=== PATIENT | female | born 1990 | race Two or more races ===

== ENCOUNTER 2024-10-26 18:20 | Emergency (ER) | payer BC, SELFPAY ==
--- OUTSIDE RECORDS SUMMARY | 2024-09-24 10:00 | XMS_ITS | Encounter Summary ---
Author Organization [facility] Address [address] [place] [id number] Care Team Providers Care Gas Compressor Turbine Operator Name Role Phone KalpeshJanette Jaskaran SUTTON C.N.PBran Primary Care Provi jairo Reason for Referral * Outpatient (Routine) - Authorized Specialty Diagnoses / Procedures Referred By Contac t Referred To Contact Family Medicine Diagnoses Nevus Skin Yadira Bell APRN, C.N.P., D.N.P. [address] [place] [phone] Phone: tel: fax: [facility] Region Referral ID Status Reason Start Date Expiration Date V isits Requested Visits Authorized [id number] Authorized 09/24/2024 03/26/2026 1 1 * Outpatient (Routine) - Authorized Specialty Diagnoses / Procedures Referred By Contac t Referred To Contact Family Medicine Diagnoses Irritation Vagina Yadira Bell APRN, C.N.P., D.N.P. [address] [place] [phone] Phone: tel: fax: [facility] Region Referral ID Status Reason Start Date Expiration Date V isits Requested Visits Authorized [id number] Authorized 09/24/2024 03/26/2026 1 1 Reason for Visit * Reason Comments Pain Vaginal * Appointment Request (Routine) - Closed Specialty Diagnoses / Procedures Referred By Rachel casillas Referred To Contact Family Medicine Referral ID Status Reason Start Date Expiration Date Visits Re quested Visits Authorized [id number] Closed 09/23/2024 12/24/2025 1 1 Encounter Details Date Type Department Care Team (Late st Contact Info) Description 09/24/2024 10:00 AM CDT Office Visit Department of Family Medicine, [facility], in [place], [place] [address] [place] [address] Yadira Bell APRN, C.N.P., D.N.P. [address] [place] [address] Irritation Vagina (Primary Dx); Nevus Skin Social History Tobacco Use Types Packs/Day Years Used Date Smoking Tobacco: Every Day Cigarettes Smokeless Tobacco: Never Alcohol Use Standard Drinks/Week Comments Not Currently 4 (1 standard drink = 0.6 oz pur e alcohol) Humiliation, Afraid, Rape, and Kick questionnair e Answer Date Recorded Within the last year, have y ou been afraid of your partner or ex-partner? No 03/14/2021 Within the last year, have y ou been humiliated or emotionally abused in other ways by your partner or ex-partner? Patient declined 03/14/2021 Within the last year, have y ou been kicked, hit, slapped, or otherwise physically hurt by your partner or ex-partner? No 03/14/2021 Within the last year, have y ou been raped or forced to have any kind of sexual activity by your partner or ex-partner? No 03/14/2021 Hunger Vital Sign Answer Date Recorded Within the past 12 months, y ou worried that your food would run out before you got the money to buy more. Patient declined Within the past 12 months, t he food you bought just didn't last and you didn't have money to get more. Patient declined PRAPARE - Transportation Answer Date Re corded In the past 12 months, has l ack of transportation kept you from medical appointments or from getting medications? No 02/23 In the past 12 months, has l ack of transportation kept you from meetings, work, or from getting things needed for daily living? No 03/14/2021 Housing Stability Vital Sign Answer Onur e Recorded In the last 12 months, was t here a time when you were not able to pay the mortgage or rent on time? No 03/14/2021 In the last 12 months, how many places have you lived? 1 03/14/2021 In the last 12 months, was t here a time when you did not have a steady place to sleep or slept in a nursing home (including now)? No 03/14/2021 Depression Answer Date Recor ded PHQ-9 Total Score (max 27) 14 05/18 Education Answer Date Recorded What is the highest level of school you have completed or the highest degree you have received? GED or equivalent Comments Unknown Sex and Gender Information Value Date Recorded Sex Assigned at Female 03/01/2021 9:59 PM NUCLEAR SUPERVISING OPERATOR Legal Sex Female 11:14 AM NUCLEAR SUPERVISING OPERATOR Gender Identity Female 11/25/2020 9:55 AM CDT Sexual Orientation Straight 11/25/2020 9: 55 AM CDT documented as of this encounter Last Filed Vital Signs Vital Sign Reading Time Taken Comments Blood Pressure 108/77 09/24/2024 9:56 AM CDT Pulse 64 09/24/2024 9:56 AM CDT Temperature - - Respiratory Rate 16 09/24/2024 9:56 AM CDT Oxygen Saturation - - Inhaled Oxygen Concentration - - Weight 63.1 kg (139 lb 1.8 oz) 09/24/2024 9:56 A M CDT Height - - Body Mass Index 25.15 05/18/2022 12:21 PM NUCLEAR SUPERVISING OPERATOR documented in this encounter Patient Instructions * Patient Instructions* Yadira Bell APRN, C.N.P., D.N.P. - 09/24/2024 10:00 AM CDT Vulvovaginitis Washing: -Avoid bubble baths. -Bathe in a shower rather than a bathtub. -Gently rinse the genital area, but don???t use soap. Do not apply soap or lotion directly to the genital area. -Do not sit in soapy water. When bathing in a bathtub, wash the body and hair last, while the waterdrains out. Clothing -Wear loose clothing, especially at night. -Wear cotton underwear. Consider not wearing underwear during sleep. -Wash clothes with non-scented detergents and softeners. -Give underwear an extra rinse in the washer. Swimming -Don???t let your child sit in a swimsuit for too long after she swims. -Limit time spent in chlorine. Toilet -Wipe front to back with a toilet paper that has no scent. -Use a toilet paper that doesn???t have flakes or tissue that comes off it. Sometimes these flakes can stick to the genital area and cause irritation. -Sit on the toilet with legs apart. Sometimes sitting on the toilet backwards can help to keep the legs apart. -You may need to help your daughter in the bathroom until she uses the right toilet habits. Barrier creams -To help with irritation, apply a barrier cream to the vulva, such as petroleum jelly, Vaseline??? or Aquaphor ???. Barrier creams can be used as often as needed. Applying a small amount each night may help. Manage discomfort -A cool compress may help if there is swelling or redness. -Wearing loose clothing may help with discomfort. documented in this encounter H&P Notes * Yadira Bell APRN, C.N.P., D.N.P. - 09/24/2024 10:00 AM CDT SUBJECTIVE CHIEF COMPLAINT / REASON FOR VISIT Vaginal pain and skin mole HISTORY OF PRESENT ILLNESS Herlinda Manley is a 33-year-old female who presents today for concerns of vaginal pain and skin mole. Vaginal pain Onset was 1 week ago. The pain started after she being sexually active while doing a bubble bath. She used the bubble bath soap for her kids. She is in a monogamous relationship. Describes the pain as being deep inside the vaginal canal. Denies any abnormal vaginal discharge. Denies any dysuria or hematuria. Reports history of Chlamydia in the past that was treated. Reports history of BV and yeast infections. Skin lesion Onset was 3 years ago. The lesion can be painful and itchy at times. Denies any redness. Describes the lesion as raised and he can be annoying at times. REVIEW OF SYSTEMS REVIEW OF SYSTEMS Per HPI OBJECTIVE PHYSICAL EXAM Vitals: 09/24/24 0956 BP: 108/77 BP Location: Right arm Patient Position: Sitting Cuff Size: Regular Pulse: 64 Resp: 16 GENERAL APPEARANCE: Healthy appearing female. Well developed, well nourished, alert, in no acute distress. LUNGS: Clear without rales, rhonchi, wheezing or diminished breath sounds. HEART: RRR with normal S1, S2 without murmur, gallop, or rub heard. ABDOMEN: Soft, flat, nontender without masses or hepatosplenomegaly. Bowel sounds are active. Pelvic Exam Female: External genitalia appears healthy and normal. BUS is negative. Upon speculum exam vaginal mucosa appears pink and intact. White discharge is noted on the vaginal canal SKIN: behind the back is a papular flesh looking lesion. ASSESSMENT/PLAN #1 Irritation Vagina Will proceed with STD testing for G/Dayami addition to vaginitis panel. If that is normal, I suspect she is having vulvovaginitis status post the bubble bath. Discussed treatment in AVS including use of Vaseline, Aquaphor, Desitin barrier creams as needed, avoiding bubble baths at this time, wearing loose clothing, and can use a cool compress if needed. All questions answered to the best of my ability and patient verbalized understanding of information. - Vaginitis Panel, Amplified RNA - Family Medicine - Dermatology consult (clinic); Future; Expected date: 09/24/2024 Chlamydia / Gonorrhoeae Amplified RNA #2 Nevus Skin Differentials is skin tag, skin nevi. She will like it removed and will be referred to Dermatology for that. - Family Medicine - Dermatology consult (clinic); Future; Expected date: 09/24/2024 I spent 20 minutes reviewing patient charting, counseling, coordination of care. documented in this encounter Plan of Treatment Upcoming Encounters Date Type Department Care Team (Late st Contact Info) Description 11/05/2024 10:00 AM CDT Silent Schedule Department of Obstetrics and Gynecology in [place], [place] [address] [phone] Tab Ngo M.D. [address] [phone] 11/05/2024 11:20 AM CDT Routine Department of Family Medicine, [facility], in [place], [place] [address] [address] Romaine Trinh M.D. [address] [phone] 11/05/2024 12:00 PM CDT Appointment Department of Laboratory Medicine in [place], [place] [address] [address] Romaine Trinh M.D. [address] [phone] 11/05/2024 12:10 PM CDT Appointment Department of Laboratory Medicine in [place], [place] [address] [address] Romaine Trinh M.D. [address] [phone] 01/28/2025 3:00 PM NUCLEAR SUPERVISING OPERATOR Comprehensive Visit Department of Family Medicine, [facility], in [place], [place] [address] [phone] Barbie Florez APRN, C.N.P. [address] [place] [address] Scheduled Referrals Name Type Priority Associated Diagnoses Order Schedule Family Medicine - Dermatology consult (clinic) Outpatient Referral Routine Irritation Vagina Expected: 09/24/2024, Expires: 12/25/2025 Family Medicine - Dermatology consult (clinic) Outpatient Referral Routine Nevus Skin Expected: 09/24/2024, Expires: 12/25/2025 documented as of this encounter Procedures Procedure Name Priority Date/Time Associated Diagnosis Comments VAGINITIS PANEL, AMPLIFIED RNA Routine 09/24/2024 10:55 AM CDT Irritation Vagina CHLAMYDIA/GONORRHOE AE AMPLIFIED RNA Routine 09/24/2024 10:55 AM CDT documented in this encounter Results * Chlamydia / Gonorrhoeae Amplified RNA (09/24/2024 10:55 AM CDT) Source VAGINA 09/24/2024 10:51 PM CDT MKTO Chlamydia trachomatis amplified RNA Negative Negative 09/24/2024 10:51 PM CDT MKTO Source VAGINA 09/24/2024 10:51 PM CDT MKTO Neisseria gonorrhoeae amplified RNA Negative Negative 09/24/2024 10:51 PM CDT MKTO 09/24/2024 10:5 5 AM CDT 09/24/2024 2:01 PM CDT us Yadira Bell APRN, C.N.P. , D.N.P. LAB MICROBIOLOGY - GENERAL ORDERABLES Final Result [facility] [address] [place] [address], [facility]TO [address] [id number] * Vaginitis Panel, Amplified RNA (09/24/2024 10:55 AM CDT) Bacterial Vaginosis, Amplified RNA Negative Negative 09/24/2024 10:20 PM CDT MKTO Comment: A negative result does not exclude infection. Assay result is based on relative amounts of Lactobacillus (L. gasseri, L. crispatus, L. jensenii), Gardnerella vaginalis and Atopobium vaginae. Silva species, Amplified RNA Negative Negative 09/24/2024 10:34 PM CDT MKTO Comment: No RNA detected from Silva albicans, C. tropicalis, C. parapsilosis or C. dubliniensis. A negative result does not exclude infection. Silva glabrata, Amplified RNA Negative Negative 09/24/2024 10:34 PM CDT MKTO Comment: No RNA detected from Silva glabrata. A negative result does not exclude infection. Trichomonas vaginalis Amplified RNA Negative Negative 09/24/2024 10:34 PM CDT MKTO Swab (Vagina) 09/24/2024 10: 55 AM CDT 09/24/2024 2:01 PM CDT Yadira Bell APRN, C.N.P. , D.N.P. LAB MICROBIOLOGY - GENERAL ORDERABLES Final Result [facility] [address] [place] [address], [facility] [address] [place] [id number] documented in this encounter Visit Diagnoses Diagnosis Irritation Vagina- Primary Nevus Skin documented in this encounter Additional Health Concerns Assessment Noted Time PHQ-9 Depression Total Score: 14 023 2:10 PM NUCLEAR SUPERVISING OPERATOR documented as of this encounter Care Teams Gas Compressor Turbine Operator Relationship Specialty Start Date End Date Janette Posey APRN, C.N.P. [address] [place] [address] PCP - General Family Medicine 12/03/18 documented as of this encounter
--- OUTSIDE RECORDS SUMMARY | 2024-10-02 16:20 | XMS_ITS | Encounter Summary ---
Author Organization [facility] Address [address] [place] [address] Care Team Providers Care Meteorological Aide Name Role Phone Janette Posey APRN, C.NBranPBran Primary Care Provi jairo Reason for Referral * Outpatient (Routine) - Closed Specialty Diagnoses / Procedures Referred By Rachel casillas Referred To Contact Obstetrics and Gynecology Sandhya Turpin M.D. [address], [place] [address] Phone: tel: fax: [facility] Region Referral ID Status Reason Start Date Expiration Date Visits Re quested Visits Authorized [id number] Closed 10/02/2024 04/03/2026 1 1 Reason for Visit * Reason Comments Difficulty Urinating Possible * Appointment Request (Routine) - Closed Specialty Diagnoses / Procedures Referred By Rachel casillas Referred To Contact Family Medicine Referral ID Status Reason Start Date Expiration Date Visits Re quested Visits Authorized [id number] Closed 10/01/2024 01/01/2026 1 1 Encounter Details Date Type Department Care Team (Late st Contact Info) Description 10/02/2024 4:20 PM CDT Office Visit Department of Family Medicine, [facility], in [place], [place] [address], [place] [address] Sandhya Turpin M.D. [address], [place] [address] Infections Of Bladder In First Trimester (HCC) (Primary Dx); Examination Test With Positive Result (HCC); Depression Major Recurrent Moderate (HCC) Social History Tobacco Use Types Packs/Day Years [...] place to sleep or slept in a assisted (including now)? No 03/14/2021 Depression Answer Date Recor ded PHQ-9 Total Score (max 27) 14 05/18 Education Answer Date Recorded What is the highest level of school you have completed or the highest degree you have received? GED or equivalent Estimated Date of Delivery Comme nts Yes 06/12/2025 Based on last me nstrual period of 09/05/2024 (Exact Date) Sex and Gender Information Value Date Recorded Sex Assigned at Female 03/01/2021 9:59 PM [employer] Legal Sex Female 11:14 AM [employer] Gender Identity Female 11/25/2020 9:55 AM CDT Sexual Orientation Straight 11/25/2020 9: 55 AM CDT documented as of this encounter Last Filed Vital Signs Vital Sign Reading Time Taken Comments Blood Pressure 120/78 10/02/2024 4:00 PM CDT Pulse 91 10/02/2024 4:00 PM CDT Temperature 36.3 C (97.4 F) 10/02/2024 4:00 PM CDT Respiratory Rate - - Oxygen Saturation - - Inhaled Oxygen Concentration - - Weight 62.6 kg (138 lb 0.1 oz) 10/02/2024 4:00 P M CDT Height 158.4 cm (5' 2.36) 10/02/2024 4:00 PM CD T Body Mass Index 24.95 10/02/2024 4:00 PM CDT documented in this encounter Patient Instructions * Patient Instructions* Sandhya Turpin M.D. - 10/02/2024 4:20 PM CDT We did find today that you have a urinary tract infection and you also had a positive test, confirming a . We should treat your urinary tract infection with Augmentin twice a day for 5-7 days. I sent enoughpills for seven days, but if you are feeling well after five, you could stop them them. I also placed a referral to establish care with our gynecologists for care. They should set you up to meet with somebody soon to talk about this and symptoms. documented in this encounter Progress Notes * Sandhya Turpin M.D. - 10/02/2024 4:20 PM CDT DATE OF VISIT: 10/02/2024 SUBJECTIVE CHIEF COMPLAINT / REASON FOR VISIT Herlinda Manley is a 33 y.o. female who presents for evaluation of Difficulty Urinating and Possible . The patient verbally consented to an audio recording of their visit to assist with the completion of documentation. History of Present Illness Herlinda Manley is a 33 year old female who presents with urinary symptoms and a positive pregnancytest. She is accompanied by her fiance and their ghzgv-hwpa-diw daughter. She has been experiencing dysuria and urinary frequency with low urine output for the past three days. These symptoms initially appeared five to six days ago, subsided for two days, and then returned. She has a history of infrequent urinary tract infections and often holds her urine, especially at night. She reports dizziness that began yesterday, worsening with positional changes such as moving from lying down to standing. She describes herself as a 'bad eater' and has been trying to maintain fluid intake despite feeling unwell. No fever is present, but she experiences lightheadedness and increased fatigue, which she attributes to early . She has taken home tests that were positive, and a confirmatory test today also returned positive. Her last menstrual period was on September 05. She is concerned about developing a yeast infection from antibiotic use, as she has experienced this in the past. She has a known allergy to doxycycline, although she has taken it in the past without adverse effects. The following portions of the patient's history were reviewed and updated as appropriate: allergies, current medications, family history, medical history, social history, surgical history, and problem list. OBJECTIVE VITAL SIGNS BP 120/78 (BP Location: Right arm, Patient Position: Sitting, Cuff Size: Regular) Pulse 91 Temp36.3 ??C (Temporal) Ht 158.4 cm Wt 62.6 kg BMI 24.95 kg/m?? Physical Exam Constitutional General: She is not in acute distress. Appearance: Normal appearance. She is well-developed, well-groomed and normal weight. She is not ill-appearing. HENT Head: Normocephalic and atraumatic. Eyes Conjunctiva/sclera: Conjunctivae normal. Neck Thyroid: No thyroid mass or thyromegaly. Trachea: Trachea normal. Cardiovascular Rate and Rhythm: Normal rate and regular rhythm. Heart sounds: Normal heart sounds. No murmur heard. Pulmonary Effort: Pulmonary effort is normal. Breath sounds: Normal breath sounds. Abdominal General: Abdomen is flat. Bowel sounds are normal. There is no distension. Palpations: Abdomen is soft. Tenderness: There is abdominal tenderness in the suprapubic area and left lower quadrant. Musculoskeletal Right lower leg: No edema. Left lower leg: No edema. Lymphadenopathy Cervical: Right cervical: No superficial cervical adenopathy. Left cervical: No superficial cervical adenopathy. Skin General: Skin is warm and dry. Neurological General: No focal deficit present. Mental Status: She is alert. Gait: Gait is intact. Psychiatric Attention and Perception: Attention normal. Mood and Affect: Affect is flat. Speech: Speech normal. Behavior: Behavior normal. Behavior is cooperative. Judgment: Judgment normal. ASSESSMENT/ PLAN Infections Of Bladder In First Trimester ([facility]) Confirmed UTI with hematuria. Dizziness possibly related to UTI or dehydration or early . Augmentin chosen for treatment due to safety in . - Prescribed Augmentin twice daily for 5 to 7 days. - Advised hydration to alleviate dizziness. - Discussed urinating after intercourse to prevent infections. - Educated on potential yeast infections due to antibiotics; recommended aezj-xhr-fgxrzbr Monistat if needed. Orders: Urinalysis with Microscopic if Indicated: Urine, Midstream amoxicillin-pot clavulanate (Augmentin) 875-125 mg per tablet; Take 1 tablet by mouth 2 (two) timesa day for 7 days. Examination Test With Positive Result ([facility]) Confirmed early . Dizziness and lightheadedness may be - related. Discussed safetyof Augmentin for UTI during . Advised on topical treatments for yeast infections during . - Referred to obstetrics and gynecology for care. - Advised hydration to help with dizziness. - Educated on use of topical treatments for yeast infections during . Orders: Test, POCT, Urine (Lab) Obstetrics and Gynecology - Obstetrics consult (clinic); Future Depression Major Recurrent Moderate (HCC) Managed with medications. Patient Instructions We did find today that you have a urinary tract infection and you also had a positive test, confirming a . We should treat your urinary tract infection with Augmentin twice a day for 5-7 days. I sent enoughpills for seven days, but if you are feeling well after five, you could stop them them. I also placed a referral to establish care with our gynecologists for care. They should set you up to meet with somebody soon to talk about this and symptoms. documented in this encounter Miscellaneous Notes * Assessment & Plan Note - Sandhya Turpin M.D. - 10/02/2024 4:20 PM CDT Associated Problem(s): Depression Major Recurrent Moderate (HCC) Managed with medications. documented in this encounter Plan of Treatment Upcoming Encounters Date Type Department Care Team (Late st Contact Info) Description 11/05/2024 10:00 AM CDT Silent Schedule Department of Obstetrics and Gynecology in [place], [place] [address] [phone] Tab Ngo M.D. [address] [address] 11/05/2024 11:20 AM CDT Routine Department of Family Medicine, [facility], in [place], [place] [address] [address] Romaine Trinh M.D. [address] [address] 11/05/2024 12:00 PM CDT Appointment Department of Laboratory Medicine in [place], [place] [address] [address] Romaine Trinh M.D. [address] [phone] 11/05/2024 12:10 PM CDT Appointment Department of Laboratory Medicine in [place], [place] [address] [place] [address] Romaine Trinh M.D. [address] [place] [address] 01/28/2025 3:00 PM [employer] Comprehensive Visit Department of Family Medicine, [facility], in [place], [place] [address] [place] [address] Barbie Florez APRN CBranNBranPBran [address] [place] [address] Scheduled Referrals Name Type Priority Associated Diagnoses Order Schedule Obstetrics and Gynecology nurse visit (clinic) Outpatient Referral Routine Expected: 10/02/2024, Expires: 01/02/2026 documented as of this encounter Procedures Procedure Name Priority Date/Time Associated Diagnosis Comments URINALYSIS WITH MICROSCOPIC IF INDICATED, U Routine 10/02/2024 4:01 PM CDT Infections Of Bladder In First Trimester (HCC) [place] URINALYSIS AUTO WO MICRO Routine 10/02/2024 4:01 PM CDT TEST, POCT, U (LAB) Routine 10/02/2024 4:01 PM CDT Examination Test With Positive Result (HCC) documented in this encounter Results * (ABNORMAL) Microscopic Automated (10/02/2024 4:01 PM CDT) White Blood Cells 31-40(A) /hpf 10/02/2024 4:32 PM CDT OWAT Comment: ----REFERENCE VALUE---- Males: 0-3 Females: 0-10 Unknown: 0-10 Red Blood Cells 41-50(A) 0 - 2 /hpf 4:32 PM CDT OWAT Dysmorphic Red Blood Cells <=25 <=25 % 10/02/2024 4:32 PM CDT OWAT Hyaline Casts 11-20 /lpf 10/02/2024 4:32 PM CDT OWAT Squamous Cells 4-10 /hpf 10/02/2024 4:32 PM CDT OWAT Bacteria Present(A) None Seen 10/02/2024 4:32 PM CDT OWAT Urine 10/02/2024 4:01 PM CDT 10/02/2024 4:22 PM CDT us Sandhya Turpin M.D. LAB URINE ORDERABLES Fin al Result Performing Organization Address City/[facility]/ZIP Co de Phone Number [facility] [address], [place] [address], [facility] OWAT [facility] [address], [place] [address] * (ABNORMAL) Test, POCT, Urine (Lab) (10/02/2024 4:01 PM CDT) Test, POCT, U Positive(A ) 10/02/2024 4:33 PM CDT OWAT Urine (Urine, Midstream) 10/02/2024 4:01 PM CDT 10/02/2024 4:29 PM CDT us Sandhya Turpin M.D. LAB POCT ORDERABLES - DE VICE Final Result Performing Organization Address [facility]/ZIP Co de Phone Number [facility] [address] [place] [address], [place] OWAT [facility] [place] [address] [place] [phone] * (ABNORMAL) Urinalysis with Microscopic if Indicated: Urine, Midstream (10/02/2024 4:01 PM CDT) Source Urine, Urine, Midstream 10/02/2024 4:26 PM CDT OWAT Clarity Cloudy(A) Clear 10/02/2024 4:26 PM CDT OWAT Color Yellow 10/02/2024 4:26 PM CDT OWAT Comment: ----REFERENCE VALUE---- Colorless Yellow Suzan Blood Moderate(A) Negative 10/02/2024 4:26 PM CDT OWAT Nitrite Negative Negative 10/02/2024 4:26 PM CDT OWAT Leukocyte Esterase Small(A) Negative 10/02/2024 4:26 PM CDT OWAT Protein 30(A) mg/dL 10/02/2024 4:26 PM CDT OWAT Comment: ----REFERENCE VALUE---- Negative Trace Glucose Negative Negative mg/dL 10/02/2024 4:26 PM CDT OWAT Ketone Negative Negative mg/dL 10/02/2024 4:26 PM CDT OWAT Bilirubin Negative Negative 10/02/2024 4:26 PM CDT OWAT pH 5.5 5.0 - 8.0 10/02/2024 4:26 PM CDT OWAT Specific [place] 1.024 1.001 - 1.035 10/02/2024 4:26 PM CDT OWAT Urobilinogen 0.2 0.2 - 1.0 mg/dL 10/02/2024 4:26 PM CDT OWAT Urine (Urine, Midstream) 10/02/2024 4:01 PM CDT 10/02/2024 4:22 PM CDT us Sandhya Turpin M.D. LAB URINE ORDERABLES Fin al Result [facility] [address] [place] [address], [facility] OWAT [facility] [address] [place] [address] documented in this encounter Visit Diagnoses Diagnosis Infections Of Bladder In First Trimester (HCC)- Primary Examination Test With Positive Result (HCC) Depression Major Recurrent Moderate (HCC) documented in this encounter Additional Health Concerns Assessment Noted Time PHQ-9 Depression Total Score: 14 023 2:10 PM [employer] documented as of this encounter Care Teams Meteorological Aide Relationship Specialty Start Date End Date Janette Posey APRN, C.N.P. [address] [place] [phone] PCP - General Family Medicine 12/03/18 documented as of this encounter
--- OUTSIDE RECORDS SUMMARY | 2024-10-13 14:00 | XMS_ITS | Encounter Summary ---
Author Organization [facility] Address [address] [place] [address] Care Team Providers Care Dredge Operator Name Role Phone Janette Posey APRN, C.NBranPBran Primary Care Provi jairo Reason for Referral * Outpatient (Routine) - Authorized Specialty Diagnoses / Procedures Referred By Rachel casillas Referred To Contact Family Medicine Diagnoses Encounter For Supervision Of Other Normal Unspecified Trimester (HCC) Tab Ngo M.D. [address] [address] Phone: tel: fax: [facility] Region Referral ID Status Reason Start Date Expiration Date V isits Requested Visits Authorized [id number] Authorized 10/13/2024 04/14/2026 1 1 Reason for Visit * Reason Comments Nurse Visit NOB ED/INTAKE APPT * Outpatient (Routine) - Closed Specialty Diagnoses / Procedures Referred By Rachel casillas Referred To Contact Obstetrics and Gynecology Sandhya Turpin M.D. [address] [place] [address] Phone: tel: fax: [facility] Region Referral ID Status Reason Start Date Expiration Date Visits Re quested Visits Authorized [id number] Closed 10/02/2024 04/03/2026 1 1 Encounter Details Date Type Department Care Team (Late st Contact Info) Description 10/13/2024 2:00 PM CDT Virtual Visit Department of Obstetrics and Gynecology in [place], [place] [address] [place] [address] Sandhya Turpin M.D. [address] [place] [address] Chiqui Dunaway R.N. [address] [place] [address] Encounter For Supervision Of Other Normal Unspecified Trimester (HCC) (Primary Dx) Discharge Disposition: Home or Self Care Social History Tobacco Use Types Packs/Day Years Used Date Smoking Tobacco: Former Cigarettes S tarted: 2023 Smokeless Tobacco: Never Comments:I used to vape. Alcohol Use Standard Drinks/Week Comments Not Currently [...] you got the money to buy more. Never true 10/14/19 25 Within the past 12 months, t he food you bought just didn't last and you didn't have money to get more. Never true 10/13/2024 PRAPARE - Transportation Answer Date Re corded In the past 12 months, has l ack of transportation kept you from medical appointments or from getting medications? No 09/23 In the past 12 months, has l ack of transportation kept you from meetings, work, or from getting things needed for daily living? No 10/13/2024 [facility] Utilities Answer Date Recorded In the past 12 months has th e electric, gas, oil, or water company threatened to shut off services in your home? No 10/13/2024 Depression Answer Date Recor ded PHQ-9 Total Score (max 27) 6 10/13 Housing Stability Answer Date Recorded What is your living situation today? I have a [facility] place to live 10/13/2024 Education Answer Date Recorded What is the highest level of school you have completed or the highest degree you have received? GED or equivalent Estimated Date of Delivery Comme nts Yes 06/12/2025 Based on last me nstrual period of 09/05/2024 (Exact Date) Sex and Gender Information Value Date Recorded Sex Assigned at Female 03/01/2021 9:59 PM TECHNOLOGY ANALYST Legal Sex Female 11:14 AM TECHNOLOGY ANALYST Gender Identity Female 11/25/2020 9:55 AM CDT Sexual Orientation Straight 11/25/2020 9: 55 AM CDT documented as of this encounter Progress Notes * Chiqui Dunaway R.N. - 10/13/2024 2:00 PM CDT SUBJECTIVE Consult conducted via real-time audio/video technology by Chiqui Dunaway R.N. in [facility] to the patient in Patient's Home CHIEF COMPLAINT / REASON FOR VISIT Herlinda Manley is a 33 y.o. . Patient's last menstrual period was 09/05/2024 (exact date). Her Estimated Date of Delivery: 06/12/25 determined by LMP. Gestational age is 5w3d. Relationship with FOB: significant other-Pasha. Patient plans to formula feed. H/O anxiety/depression. State she has noticed anxiety but prefers to deal with symptoms herself vs medication. Questions about weight lifting-usually about 50 pounds. Ask about household clinical investigator. HISTORY OF PRESENT CONDITION OB History Para Term AB Living 4 3 3 3 SAB IAB Ectopic Molar Multiple Live Births 3 # Outcome Date GA Lbr Jasbir/2nd Weight Sex Type Anes PTL Lv 4 Current 3 Term 06/28/21 39w2d 04:19 / 00:07 3.204 kg F Vag-Spont EPI N INGRIS Comments: Nuchal x2 2 Term 10/19/13 39w0d 3.26 kg M Vag-Spont EPI N INGRIS 1 Term 06/03/08 2.948 kg F Vag-Spont EPI N INGRIS Obstetric Comments OB Stratification: Green Genetic Screen: reviewed [place] Score: PHQ-9:6 OVIDIO-7:15 Medical History[1] Surgical History[2] Family History[3] Social History[4] Allergies Allergen Reactions Doxycycline Anaphylaxis Medications the Patient Reported Taking magnesium 200 mg tablet (Taking) vitamin-iron fumarate-FA 28 mg iron- 800 mcg per tablet (Taking) OBJECTIVE VITAL SIGNS ASSESSMENT / PLAN The following were reviewed with patient: Initial new OB labs,anticipated course of care, optional labs, seat belt use, dental care, exercise, caffeine use, sexual activity, toxoplasmosis precautions(if indicated), avoidance of hot tubs/saunas, WIC/PHN, [place] policy, safe over the counter medications, care cost estimate/insurance, common symptoms, mercury and listeria precautions,and , topics of when to notify care team(fever, excessive nausea/vomiting, pain, bleeding, urinary symptoms, headaches).Encouraged good communication with care team regarding emotional statu. Recommend to decrease weights during . Household clinical investigator ok in well ventilated areas.Encourage tocall with questions or concerns. Chiqui Dunaway R.N. [1] Past Medical History: Diagnosis Date Abnormal Pap Smear Cervix Anxiety 12/15/2018 Depression Major Recurrent Moderate (HCC) Diverticulosis 05/18/2022 Gallbladder Disorder Gastroesophageal Reflux Disease 04/05/2017 Infection Chlamydia Urinary Tract Infection Site Not Specified Vaginosis Bacterial [2] Past Surgical History: Procedure Laterality Date BLADDER SURGERY 2008 CHOLECYSTECTOMY N/A 06/23/2008 Cholecystectomy CHOLECYSTECTOMY 2008 [3] Family History Problem Relation Name Age of Onset Thyroid disease Mother [4] Social History Socioeconomic History Marital status: Number of children: 3 Highest education level: GED or equivalent Tobacco Use Smoking status: Former Types: Cigarettes Start date: 2023 Smokeless tobacco: Never Tobacco comments: I used to vape. Vaping Use Vaping status: current every day use Substance and Sexual Activity Alcohol use: Not Currently Alcohol/week: 4.0 standard drinks of alcohol Types: 1 Glasses of wine, 1 Cans of beer, 1 Shots of liquor, 1 Standard drinks or equivalent per week Drug use: Not Currently Types: Marijuana Sexual activity: Yes Partners: Male control/protection: None Social Drivers of Health Food Insecurity: No Food Insecurity (10/13/2024) Hunger Vital Sign Worried About Running Out of Food in the Last Year: Never true Ran Out of Food in the Last Year: Never true Transportation Needs: No Transportation Needs (10/13/2024) PRAPARE - Transportation Lack of Transportation (Medical): No Lack of Transportation (Non-Medical): No Intimate Partner Violence: Unknown (03/14/2021) Humiliation, Afraid, Rape, and Kick questionnaire Fear of Current or Ex-Partner: No Emotionally Abused: Patient declined Physically Abused: No Sexually Abused: No Housing Stability: Low Risk (10/13/2024) Housing Stability Housing: Living Situation: I have a steady place to live documented in this encounter Plan of Treatment Upcoming Encounters Date Type Department Care Team (Late st Contact Info) Description 11/05/2024 10:00 AM CDT Silent Schedule Department of Obstetrics and Gynecology in [place], [place] [address] [address] Tab Ngo M.D. [address] [address] 11/05/2024 11:20 AM CDT Routine Department of Family Medicine, [facility], in [place], [place] [address] [address] Romaine Trinh M.D. [address] [address] 11/05/2024 12:00 PM CDT Appointment Department of Laboratory Medicine in [place], [place] [address] [address] Romaine Trinh M.D. [address] [phone] 11/05/2024 12:10 PM CDT Appointment Department of Laboratory Medicine in [place], [place] [address] [phone] Romaine Trinh M.D. [address] [phone] 01/28/2025 3:00 PM TECHNOLOGY ANALYST Comprehensive Visit Department of Family Medicine, [facility], in [place], [place] [address] [phone] Barbie Florez APRN, C.N.P. [address] [phone] Scheduled Orders Name Type Priority Associated Diagnoses Order Schedule US OB First Trimester Imaging RAD - Rout ine (most inpatients and all outpatients) Encounter For Supervision Of Other Normal Unspecified Trimester (HCC) Expected: 2024, Expires: 01/13/2026 Antibody Screen, RBC (with reflex Antibody ID) Lab Routine Encounter For Supervision Of Other Normal Unspecified Trimester (HCC) Expected: 11/05/2024, Expires: 02/03/2025 Bacterial Culture, Aerobic + Susceptibility, Urine Microbiology Routine Encounter For Supervision Of Other Normal Unspecified Trimester (HCC) Expected: 11/05/2024, Expires: 02/03/2025 CBC with Differential, Blood Lab Routine Encounter For Supervision Of Other Normal Unspecified Trimester (HCC) Expected: 11/05/2024, Expires: 02/03/2025 Chlamydia / Gonorrhoeae Amplified RNA Microbiology Routine Encounter For Supervision Of Other Normal Unspecified Trimester (HCC) Expected: 11/05/2024, Expires: 02/03/2025 Hemoglobin A1c Lab Routine Encounter For Supervision Of Other Normal Unspecified Trimester (HCC) Expected: 11/05/2024, Expires: 02/03/2025 Hemoglobin Electrophoresis Evaluation Lab Routine Encounter For Supervision Of Other Normal Unspecified Trimester (HCC) Expected: 11/05/2024, Expires: 02/03/2025 HBs Antigen , Serum Microbiology Routine Encounter For Supervision Of Other Normal Unspecified Trimester (HCC) Expected: 11/05/2024, Expires: 02/03/2025 HBs Antibody , Serum Microbiology Routine Encounter For Supervision Of Other Normal Unspecified Trimester (HCC) Expected: 11/05/2024, Expires: 02/03/2025 HBc Total Ab , Serum Microbiology Routine Encounter For Supervision Of Other Normal Unspecified Trimester (HCC) Expected: 11/05/2024, Expires: 02/03/2025 Hepatitis C Virus Antibody Screen Microbiology Routine Encounter For Supervision Of Other Normal Unspecified Trimester (HCC) Expected: 11/05/2024, Expires: 02/03/2025 HIV-1/-2 Ag and Ab Scrn, Plasma Microbiology Routine Encounter For Supervision Of Other Normal Unspecified Trimester (HCC) Expected: 11/05/2024, Expires: 02/03/2025 Syphilis Total Antibody with Reflex, S ([facility]) Microbiology Routine Encounter For Supervision Of Other Normal Unspecified Trimester (HCC) Expected: 11/05/2024, Expires: 02/03/2025 Thyroid Function [facility] Routine Encounter For Supervision Of Other Normal Unspecified Trimester (HCC) Expected: 11/05/2024, Expires: 02/03/2025 Urinalysis with Microscopic if Indicated: Urine, Midstream Lab Routine Encounter For Supervision Of Other Normal Unspecified Trimester (HCC) Expected: 11/05/2024, Expires: 02/03/2025 Scheduled Referrals Name Type Priority Associated Diagnoses Orde r Schedule Family Medicine - Obstetrics consult (clinic) Outpatient Referral Routine Encounter For Supervision Of Other Normal Unspecified Trimester (HCC) Expected: 2024 (Approximate), Expires: 01/13/2026 documented as of this encounter Visit Diagnoses Diagnosis Encounter For Supervision Of Other Normal Unspecified Trimester (HCC)- Primary documented in this encounter Additional Health Concerns Assessment Noted Time PHQ-9 Depression Total Score: 6 10/14/19 25 1:37 PM CDT documented as of this encounter Care Teams Dredge Operator Relationship Specialty Start Date End Date Janette Posey APRN, C.N.P. [address], [place] [phone] PCP - General Family Medicine 12/03/18 documented as of this encounter
--- OUTSIDE RECORDS SUMMARY | 2024-10-13 20:39 | XMS_ITS | Encounter Summary ---
Author Organization [facility] Address [address] [place] [address] Care Team Providers Care Hand Or Machine Paster Name Role Phone Kalpesh Janette Jaskaran SUTTON C.N.PBran Primary Care Provi jairo Reason for Visit * Reason Comments Flank Pain Encounter Details Date Type Department Care Team (Late st Contact Info) Description 10/13/2024 8:39 PM CDT - 10/13/2024 11:59 PM CDT Emergency [facility] [address] [place] [address] Abdominal Pain (Primary Dx) Discharge Disposition: Home or Self [...] things needed for daily living? No 10/13/2024 [facility] Utilities Answer Date Recorded In the past 12 months has th [employer] electric, gas, oil, or water company threatened to shut off services in your home? No 10/13/2024 Depression Answer Date Recor ded PHQ-9 Total Score (max 27) 6 10/13 Housing Stability Answer Date Recorded What is your living situation today? [facility] to live 10/13/2024 Education Answer Date Recorded What is the highest level of school you have completed or the highest degree you have received? GED or equivalent Estimated Date of Delivery Comme nts Yes 06/12/2025 Based on last me nstrual period of 09/05/2024 (Exact Date) Sex and Gender Information Value Date Recorded Sex Assigned at Female 03/01/2021 9:59 PM EMBROIDERER Legal Sex Female 11:14 AM EMBROIDERER Gender Identity Female 11/25/2020 9:55 AM CDT Sexual Orientation Straight 11/25/2020 9: 55 AM CDT documented as of this encounter Medications at Time of Discharge acetaminophen (TYLENOL) 325 mg tablet Take 325-650 mg by mouth every 4 (four) hours as needed. 06/29/2021 hydrOXYzine (Atarax) 25 mg tablet TAKE 1 TABLET BY MOUTH DAILY NEEDED FOR ANXIETY TAKE NEEDED AT NIGHT FOR YOUR RACING THOUGHTS 11/15/2023 magnesium 200 mg tablet Take 400 mg by mouth daily before morning meal. norelgestromin-et hinyl estradiol (Xulane) 150-35 mcg/[address] 1 patch on the skin over 168 hr. 04/03/2024 omeprazole (PriLOSEC) [address] capsule Take 1 capsule (20 mg total) by mouth every morning before breakfast. 90 capsule 3 05/18/2022 vitamin-iron fumarate-FA 28 mg iron- 800 mcg per tablet Take 2 tablets by mouth daily. documented as of this encounter Plan of Treatment Upcoming Encounters Date Type Department Care Team (Late st Contact Info) Description 11/05/2024 10:00 AM CDT Silent Schedule Department of Obstetrics and Gynecology in [place], [place] [address] [place] [phone] Tab Ngo M.D. [address] [phone] 11/05/2024 11:20 AM CDT Routine Department of Family Medicine, [facility], in [place], [place] [address] [phone] Romaine Trinh M.D. [address] [phone] 11/05/2024 12:00 PM CDT Appointment Department of Laboratory Medicine in [place], [place] [address] [phone] Romaine Trinh M.D. [address] [phone] 11/05/2024 12:10 PM CDT Appointment Department of Laboratory Medicine in [place], [place] [address] [phone] Romaine Trinh M.D. [address] [phone] 01/28/2025 3:00 PM EMBROIDERER Comprehensive Visit Department of Family Medicine, [facility], in [place], [place] [address] [place] [address] Barbie Florez APRN, C.N.P. [address] [place] [address] documented as of this encounter Procedures Procedure Name Priority Date/Time Associated Diagnosis Comments US OB TRANSVAGINAL RAD - Semiurgent (Fast; most ED patients; some inpatients) 10/13/2024 9:56 PM CDT documented in this encounter Results * US OB Transvaginal (10/13/2024 9:56 PM CDT) Anatomical Region Laterality Modality Pelvis, Ultrasound OB RST LOS, Ultrasound ARZ LO S N/A Ultrasound Impressions 10/13/2024 10:05 PM CDT Intrauterine with definite gestational sac and yolk sac but no embryo or cardiac activity yet seen. Consider follow-up ultrasound in 11-14 days. Narrative 10/13/2024 10:05 PM CDT EXAM: US OB TRANSVAGINAL COMPARISON: None TECHNIQUE: Transvaginal Only FINDINGS: Number of Gestations: N/A Gestational age and ELIE by LMP or OB/EHR assignment: 5 w 3 d, ELIE: 06/12/2025 INTRAUTERINE Embryo: Not seen, [place]-Rump Length: N/A Gestational Sac: Normal Yolk Sac: Normal Placenta Location: Too Early to ID. Age and ELIE by current ultrasound measurements: 5 w 1 d, ELIE: 06/14/2025. Cardiac activity: N/A Uterus: No unexpected findings. Right Ovary/Adnexa: Corpus luteum. Left Ovary/Adnexa: Corpus luteum. Cervical Length: Normal, greater than 2.5cm TV Intraperitoneal Fluid: None. Procedure Note Greg Rodrigues M.D. - 10/13/2024 EXAM: US OB TRANSVAGINAL COMPARISON: None TECHNIQUE: Transvaginal Only FINDINGS: Number of Gestations: N/A Gestational age and ELIE by LMP or OB/EHR assignment: 5 w 3 d, ELIE:06/12/2025 INTRAUTERINE Embryo: Not seen, [place] Length: N/A Gestational Sac: Normal Yolk Sac: Normal Placenta Location: Too Early to ID. Age and ELIE by current ultrasound measurements: 5 w 1 d, ELIE: 06/14/2025. Cardiac activity: N/A Uterus: No unexpected findings. Right Ovary/Adnexa: Corpus luteum. Left Ovary/Adnexa: Corpus luteum. Cervical Length: Normal, greater than 2.5cm TV Intraperitoneal Fluid: None. IMPRESSION: Intrauterine with definite gestational sac and yolk sac but noembryo or cardiac activity yet seen. Consider follow-up ultrasound in11-14 days. us Irais Guillen M.D. IMG OB US PROCEDURES Final R esult documented in this encounter Visit Diagnoses Diagnosis Abdominal Pain- Primary documented in this encounter Additional Health Concerns Assessment Noted Time PHQ-9 Depression Total Score: 6 10/14/19 25 1:37 PM CDT documented as of this encounter Care Teams Hand Or Machine Paster Relationship Specialty Start Date End Date Janette Posey, LESLEY, C.N.P. [address] [place] [phone] PCP - General Family Medicine 12/03/18 documented as of this encounter
[2024-10-26 18:26] VITALS: BP 113/73; PULSE 81; RESP 16; TEMP 36.7; O2SAT 98; BMI 25.2
[2024-10-26 19:21] VITALS: BP 116/68; PULSE 74; RESP 16; O2SAT 99
--- NOTE | 2024-10-26 20:20 | CRLHL7_ITS ---
For Patients: As a result of the Century Cures Act, medical imaging exams and procedure reports are released immediately into your electronic medical record. You may view this report before your referring provider. If you have questions, please contact your health care provider. INDICATION: Vaginal bleeding. TECHNIQUE: Ultrasound OB pelvis transvaginal for better assessment of the pole and ovaries. Real-time colon-scale imaging of the pelvis was performed. COMPARISON: None. FINDINGS: There is a single intrauterine gestation. The embryo demonstrates a regular cardiac rate measuring 159 beats per minute. The embryo`s crown rump length measurement of 1.2 cm corresponds to a gestational age of 7 weeks 3 days with a sonographic due date of 06/11/2025. There is a normal appearing yolk sac. There are no gross abnormalities noted within the embryo at this early state of development. The placenta has not yet developed. There is no sign of perigestational hemorrhage. The ovaries are of normal size. Right ovarian corpus luteal cyst. There are no suspicious fluid collections noted in the cul-de-sac. IMPRESSION: Single viable intrauterine with estimated gestational age of 7 weeks 3 days. No acute abnormalities seen. Dictated by Srinivasan Oh MD @ 10/26/2024 9:39:15 PM (Electronically Signed)
[2024-10-26 20:29] VITALS: BP 112/68; PULSE 68; RESP 16; O2SAT 98
--- OUTSIDE RECORDS SUMMARY | 2024-10-26 20:36 | XMS_ITS | Clinical Summary ---
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 0 11/25/19 20 Active acetaminophen (TYLENOL) 325 mg tabletIndications :Encounter for supervision of other normal in third trimester (HC) Take 1-2 Tablets (325-650 mg) by mouth every 4 hours if needed (mild pain). Max acetaminophen dose: 4000mg in 24 hrs. 100 Tablet 06/30/19 22 Active ethinyl estradiol-norelge maikel (ORTHO EVRA) 150-35 mcg/24 hr patchIndications: Encounter for contraceptive management, unspecified type Apply 1 Patch on dry, clean, hairless skin once weekly. 12 Patch 3 04/03/19 25 Active hydrOXYzine HCL (ATARAX) 25 mg tablet TAKE 1 TABLET BY MOUTH DAILY NEEDED FOR ANXIETY TAKE NEEDED AT NIGHT FOR YOUR RACING THOUGHTS 11/15/19 24 Active omeprazole 20 mg Delayed-Release capsuleIndication s:Gastroesophagea l reflux disease, unspecified whether esophagitis present Take 1 Capsule (20 mg) by mouth once daily before a meal. 90 Capsule 06/27/19 25 Active Active Problems Problem Noted Date Diagnosed Date Generalized anxiety disorder 01/30/2023 Moderate episode of recurrent major depressive d isorder 01/30/2023 Diverticulosis 05/18/2022 Gastroesophageal reflux disease 04/05/2017 Estimated Date of Delivery Comme nts Yes 06/12/2025 Resolved Problems Problem Noted Date Diagnosed Date Resolved Date Sensitivity to sunlight 07/07/201510/2022 Fertility testing 10/06/2012 01/30/2023 Overview (10/09/2012): 10/03/12 Nl TSH, progesterone and prolactin level. Kyle Conrad MD, BEEF TRIMMER 12:15 PM 10/06/2012 10/09/2012 's SA count is low with minimal movement and he collected the entire specimen. ? varicocele changes. Should see Dr Edmond and he will call to set up appointment. He was not seen for the infertility original appointment. Kyle Conrad MD, BEEF TRIMMER 2:34 PM 10/09/2012 Supervision of normal 01/30/2023 Encounters Date Type Department Care Team Description 10/13/2024 8:40 PM CDT - 10/13/2024 10:24 PM CDT Emergency [address] [address] Irais Guillen MD Lower abdominal pain (Primary Dx) Discharge Disposition: Home Self Care 10/13/2024 Travel from Last 3 Months Immunizations Immunization Administration Dates Next Due DTaP 06/08/1996, 6,06/09/1995,1992,01/28/1992 Hepatitis B (Peds) 04/13/2003,01/27/2002, 001 Human Papilloma Virus Vaccine 07/10/2011, 008 Inactivated Polio Vaccine 11/13/2000,,09/06/1992,1991,1991 Influenza A (H1N1), Inactiva kaiden (Age >=3 Years) 03/07/2009 Influenza, IIV3 (Age >=3 years) 04/02/2012,04/13 Influenza, IIV4 (=>6mos) MDV 06/13/2020 MMR 01/27/2002,11/13/2000 Polio Virus, Unspecified 11/13/2000,05/23,09/06/1992,1991,1991 Td (Age >=7 Years) 02/22/2004 Tdap 06/23/2021,08/24/2013,07/10/2011 Tuberculin (PPD) 02/08/2020 Tuberculin Skin Test, Unspecified 02/08/2020 Varicella Vaccine 07/10/2011,04/13/2003 Family History Medical History Relation Name Comments Good Health Brother 1 Gian Good Health Brother 2 Guierllmo Good Health Daughter Alea Unknown Father Gissel hasn't seen fat her since she was a child Stroke Maternal Grandfather Bandar Good Health Maternal Grandmother Kaylee med hx unknown Good Health Mother Keya Other Mother Keya anemia Relation Name Status Comments Brother 1 Gian Alive Brother 2 Guierllmo Alive Daughter Alea Alive Father Baltazarmo Alive Maternal Grandfather Bandar Maternal Grandmother Kaylee Alive Mother Keya Alive Social History Tobacco Use Types Packs/Day Years Used Date Smoking Tobacco: Never Passive Smoke Exposure: Past Smokeless Tobacco: Never Tobacco Cessation:Counseling Given: No Alcohol Use Standard Drinks/Week Comments Not Currently 0 (1 standard drink = 0.6 oz pur e alcohol) Occassionaly PHQ-2 Answer Date Recorded PHQ-2 TOTAL SCORE 2 04/27/2021 Financial Resource Strain Answer Date R ecorded Difficulty of Paying Living Expenses Not on file 03/25/2021 Difficulty of Paying Living Expenses Not on file 03/25/2021 Interpersonal Safety Answer Date Record ed Are you being hit, kicked, p ushed or yelled at (see row info)? Unable to assess, family/SO in room. 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 Not on file Not on file Not on file Obstetrics History Para Term AB IAB SAB Ectopic Multiple Livin g Live Births 4 3 3 2 2 Date Outcome GA Total Labor Labor/2nd/3rd Weight Sex Type Anes PTL Jenny A1 A5 Name Clin 2008 Term F Vag-Sp ont Livin g 2013 Term 39w 0d M Vag N Neyma r Complications:None Delivery Location:[place] 2021 Term 39w 2d 4h 31m 4h 19m/0h 07m/0h 05m 3.2 kg (7 lb 1 oz) F VAGINA L WEST [facility] Livin g 7 9 BG ADAM MANLEY Ashle igh Nicol e, MD Complications:None Delivery Location:Hospital ( [facility] INPATIENT) Comments:Nuchal x2 Current Comments 09/15/12 Pt has a 4yr old jacob sloan, delivered at 42weeks after induction at [facility] in [place] Last Filed Vital Signs Vital Sign Reading Time Taken Comments Blood Pressure 115/73 10/13/2024 10:20 PM CDT Pulse 91 10/13/2024 9:19 PM CDT Temperature 36.7 C (98 F) 10/13/2024 8:45 PM CDT Respiratory Rate 16 10/13/2024 8:45 PM CDT Oxygen Saturation 98% 10/13/2024 9:19 PM CDT Inhaled Oxygen Concentration - - Weight 64 kg (141 lb) 10/13/2024 8:42 PM CDT Height 157.5 cm (5' 2) 10/13/2024 8:42 PM CDT Body Mass Index 25.79 10/13/2024 8:42 PM CDT Plan of Treatment Health Maintenance Due Date Last Done Comments HIV for age 15-65 10/30/2006 Hepatitis C screening for age 18-79 10/30/2009 Pap test for age 21-65 11/19/2017 11/19/2014 BMI (ht and wt on same day) for age 18+ 04/27/2022 04/27/2021, 11/25/2019, 02/18/2017, Additional history exists Depression screening for age 12+ 04/27/2022 04/27/2021, 05/30/2020, 02/18/2017, Additional history exists COVID-19 vaccine series ( season) 2023 Influenza Vaccine (#1) 2024 , 04/02/2012, 04/13/2003 RSV vaccine for adults or (1 - Risk 1-dose series) 04/17/2025 Tetanus booster 06/24/2031 06/23/2021, 06/0 04/2013, 07/10/2011, Additional history exists Hepatitis B series for 19+ Completed 04/13, 01/27/2002, 11/13/2000 Pneumococcal series for age 6-49 Aged Out No longer eligible based on patient's age to complete this topic Procedures Procedure Name Priority Date/Time Associated Diagnosis Comments US OB 1ST TRI SINGLE TA AND TV STAT 10/13/2024 9:50 PM CDT EKG 12 LEAD STAT 10/13/2024 9:29 PM CDT UA W/ SEDIMENT EXAM REFLEXED PER CRITERIA STAT 10/13/2024 9:27 PM CDT CBC WITH AUTO DIFFERENTIAL STAT 10/13/2024 8:53 PM CDT BASIC METABOLIC PANEL STAT 10/13/2024 8:53 PM CDT HCG BETA QUANT, STAT 10/13/2024 8:53 PM CDT CBC WITH AUTO DIFFERENTIAL STAT 10/13/2024 8:53 PM CDT 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 PREP PAP SCREEN IMAGED Today 11/19/2014 1:30 PM CDT Encounter for insertion of mirena IUD from Last 3 Months or Most Recently Relevant to Health Maintenance Results * US OB 1ST TRI SINGLE TA AND TV (10/13/2024 9:50 PM CDT) Anatomical Region Laterality Modality Ultrasound us Irais Guillen MD US Final Result * EKG 12 LEAD (10/13/2024 9:29 PM CDT) Interpretation Normal sinus rhythm Poor R-wave progression ; consider anterior infarct, lead placement, or normal variant Abnormal ECG When compared with ECG of 18-Feb-2017 16:05, No significant change was found BEYOND NOW Ventricular Rate 99 BPM BEYOND NOW Atrial Rate 99 BPM BEYOND NOW P-R Interval 136 ms BEYOND NOW QRS Duration 70 ms BEYOND NOW QT 334 ms BEYOND NOW QTc 428 ms BEYOND NOW P [place] 46 degrees BEYOND NOW R [place] 62 degrees BEYOND NOW T [place] 35 degrees BEYOND NOW 10/13/2024 9:29 PM CDT 10/14/2024 7:27 PM CDT us Irais Guillen MD EKG ORD Final Result BEYOND NOW [place], [place] * UA W/ SEDIMENT EXAM REFLEXED PER CRITERIA (10/13/2024 9:27 PM CDT) COLOR Yellow Yellow Color 10/13/2024 9:39 PM [facility] CLARITY Clear Clear Clarity 10/13/2024 9:39 PM [facility] SPECIFIC GRAVITY,URINE 1.010 1.010, 1.015, 1.020, 1.025 10/13/2024 9:39 PM [facility] PH,URINE 6.0 6.0, 7.0, 8.0, 5.5, 6.5, 7.5, 8.5 10/13/2024 9:39 PM [facility] UROBILINOGEN,Q UALITATIVE Normal Normal EU/dl 10/13/2024 9:39 PM [facility] PROTEIN, URINE Negative Negative mg/dL 10/13/2024 9:39 PM [facility] GLUCOSE, URINE Negative Negative mg/dL 10/13/2024 9:39 PM [facility] KETONES,URINE Negative Negative mg/dL 10/13/2024 9:39 PM [facility] BILIRUBIN,URIN E Negative Negative 10/13/2024 9:39 PM [facility] OCCULT BLOOD,URINE Negative Negative 10/13/2024 9:39 PM [facility] NITRITE Negative Negative 10/13/2024 9:39 PM [facility] LEUKOCYTE ESTERASE Negative Negative 10/13/2024 9:39 PM [facility] Urine URINE SPECIMEN / Unknown Non-Blood / Unknown 10/13/2024 9:27 PM CDT 10/13/2024 9:36 PM CDT us Irais Guillen MD URINE Final Result Performing Organization Address City/State/[facility] Co de Phone Number [facility] [address] [address] * (ABNORMAL) CBC WITH AUTO DIFFERENTIAL (10/13/2024 8:53 PM CDT) WHITE BLOOD COUNT 9.9 4.5 - 11.0 thou/cu mm 10/13/2024 9:00 PM [facility] RED BLOOD COUNT 4.45 4.00 - 5.20 mil/cu mm 10/13/2024 9:00 PM [facility] HEMOGLOBIN 13.9 12.0 - 16.0 g/dL 10/13/2024 9:00 PM [facility] HEMATOCRIT 40.3 33.0 - 51.0 % 10/13/2024 9:00 PM [facility] MCV 91 80 - 100 fL 10/13/2024 9:00 PM [facility] MCH 31.2 26.0 - 34.0 pg 10/13/2024 9:00 PM [facility] MCHC 34.5 32.0 - 36.0 g/dL 10/13/2024 9:00 PM [facility] RDW 12.4 11.5 - 15.5 % 10/13/2024 9:00 PM [facility] PLATELET COUNT 237 140 - 440 thou/cu mm 10/13/2024 9:00 PM [facility] MPV 10.2 6.5 - 11.0 fL 10/13/2024 9:00 PM [facility] % NEUT 61.9 % 10/13/2024 9:00 PM [facility] % LYMPH 30.3 % 10/13/2024 9:00 PM [facility] % MONO 6.9 % 10/13/2024 9:00 PM CDT [facility] % EOS 0.7 % 10/13/2024 9:00 PM CDT [facility] % BASO 0.2 % 10/13/2024 9:00 PM CDT [facility] ABSOLUTE NEUTROPHILS 6.1 1.7 - 7.0 thou/cu mm 10/13/2024 9:00 PM CDT [facility] ABSOLUTE LYMPHOCYTES 3.0(H) 0.9 - 2.9 thou/cu mm 10/13/2024 9:00 PM CDT [facility] ABSOLUTE MONOCYTES 0.7 <0.9 thou/cu mm 10/13/2024 9:00 PM T [facility] ABSOLUTE EOSINOPHILS 0.1 <0.5 thou/cu mm 10/13/2024 9:00 PM T [facility] ABSOLUTE BASOPHILS 0.0 <0.3 thou/cu mm 10/13/2024 9:00 PM CDT [facility] Blood BLOOD SPECIMEN / Unknown Venipuncture / Unknown 10/13/2024 8:53 PM CDT 10/13/2024 8:56 PM CDT us Irais Guillen MD HEMATOLOGY Final Result Performing Organization Address City/State/[facility] Co de Phone Number [facility] [address] [address] * HCG BETA QUANT, (10/13/2024 8:53 PM CDT) HCG BETA QUANT, 9,336 mIU/mL 10/13/2024 9:30 PM CDT [facility] Blood BLOOD SPECIMEN / Unknown Venipuncture / Unknown 10/13/2024 8:53 PM CDT 10/13/2024 8:56 PM CDT Narrative [facility] - 10/13/2024 9:30 PM CDT Expected Value for Healthy Non- premenopausal women <5.3mIU/mL FOR GESTATIONAL ASSESSMENT-See Range Table Below Weeks of gestation hCG mIU/mL 3 weeks gestation (5.8 - 71.2) 4 weeks gestation (9.5 - 750) 5 weeks gestation (217 - 7138) 6 weeks gestation (158 - 31,795) 7 weeks gestation (3,697 - 163,563) 8 weeks gestation (32,065 - 149,571) 9 weeks gestation (63,803 - 151,410) 10 weeks gestation (46,509 - 186,977) 12 weeks gestation (27,832 - 210,612) 14 weeks gestation (13,950 - 62,530) 15 weeks gestation (12,039 - 70,971) 16 weeks gestation (9,040 - 56,451) 17 weeks gestation (8,175 - 55,868) 18 weeks gestation (8,099 - 58,176) Biotin supplements may cause clinically significant interference for this test assay. If interference is suspected, it is strongly recommended that biotin is discontinued for at least one week prior to retesting. us Irais Guillen MD CHEMISTRY Final Result [facility] [address] [address] * (ABNORMAL) BASIC METABOLIC PANEL (10/13/2024 8:53 PM CDT) SODIUM 139 136 - 145 mmol/L 10/13/2024 9:20 PM [facility] POTASSIUM 3.5 3.5 - 5.1 mmol/L 10/13/2024 9:20 PM [facility] CHLORIDE 103 98 - 107 mmol/L 10/13/2024 9:20 PM [facility] CO2,TOTAL 24 22 - 29 mmol/L 10/13/2024 9:20 PM [facility] ANION GAP 12 5 - 18 10/13/2024 9:20 PM [facility] GLUCOSE 109(H) 70 - 99 mg/dL 10/13/2024 9:20 PM [facility] CALCIUM 9.1 8.8 - 10.4 mg/dL 10/13/2024 9:20 PM [facility] Comment: Reference ranges for this test were updated on 01/28/2024 to reflect our healthy population more accurately. Reference range changes are not retroactively applied to results, but previous results using the same methodology can be interpreted in the context of the new reference range. BUN 13 6 - 20 mg/dL 10/13/2024 9:20 PM T [facility] CREATININE 0.63 0.50 - 0.90 mg/dL 10/13/2024 9:20 PM [facility] BUN/CREAT RATIO 21(H) 10 - 20 9:20 PM [facility] eGFR >90 >90 mL/min/1.7 3m2 10/13/2024 9:20 PM [facility] Comment:As of 2021, eG FR is calculated by the CKD-EPI creatinine equation without race adjustment. eGFR can be influenced by muscle mass, exercise, and diet. The reported eGFR is an estimation only and is only applicable if the renal function is stable. Blood BLOOD SPECIMEN / Unknown Venipuncture / Unknown 10/13/2024 8:53 PM CDT 10/13/2024 8:56 PM CDT us Irais Guillen MD CHEMISTRY Final Result [facility] [address] [address] * 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 THIN PREP PAP SCREEN IMAGED (11/19/2014 1:30 PM CDT) 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 CYTOLOGY See Anatomic Pathology case 11/24/2014 2:[address] [facility] Specimen (specimen) (Cervical/Vagina l) Non-Blood / Unknown 11/19/2014 1:30 PM CDT 11/19/2014 1:56 PM CDT us Mya Polanco MD PATHOLOGY/CYTOLOGY Final Resu lt [facility] [address] [place] [address], [place] from Last 3 Months or Most Recently Relevant to Health Maintenance Insurance [facility] [place] [address] Advance Directives * Full Code (Latest Code Status on File) Date Activated Date Inactivated Comments 06/28/2021 12:43 PM 06/29/2021 5:29 PM Question Answer Comments Code Status Discussion: Other Care Teams Insole And Heel Stiffener Relationship Specialty Start Date End Date , No Primary . PCP - General 09/15/12
--- OUTSIDE RECORDS SUMMARY | 2024-10-26 20:36 | XMS_ITS | Clinical Summary ---
Author Organization [facility] Address [address] [place] [address] Care Team Providers Care Private Sector Executive Name Role Phone Janette Posey APRN C.N.PBran Primary Care Provi jairo Source Comments Patient records contain information from all sites at [facility]. For routine questions regarding patient records, call [phone] during business hours, M-F 8:00 AM - 5:00 PM Central Time. Record requests for emergency care only can be directed to [phone] at any time.[facility] Allergies Active Allergy Reactions Criticality Noted Date Comments Doxycycline Anaphylaxis High 03/01/2017 Medications * This document contains information received from the source organization and may not represent a complete record from that organization. acetaminophen (TYLENOL) 325 mg tablet Take 325-650 mg by mouth every 4 (four) hours as needed. 06/30/19 22 Active omeprazole (PriLOSEC) [address] capsule Take 1 capsule (20 mg total) by mouth every morning before breakfast. 90 capsule 3 05/18/19 23 Active Additional Information Patient not taking.Reported on 10/13/2024 hydrOXYzine (Atarax) 25 mg tablet TAKE 1 TABLET BY MOUTH DAILY NEEDED FOR ANXIETY TAKE NEEDED AT NIGHT FOR YOUR RACING THOUGHTS 11/15/19 24 Active norelgestromin- ethinyl estradiol (Xulane) 150-35 mcg/[address] 1 patch on the skin over 168 hr. 04/03/19 25 Active vitamin-iron fumarate-FA 28 mg iron- 800 mcg per tablet Take 2 tablets by mouth daily. Active magnesium 200 mg tablet Take 400 mg by mouth daily before morning meal. Active ibuprofen (ADVIL,MOTRIN) 200 mg tablet Take 200-600 mg by mouth every 6 (six) hours as needed. 06/30/19 22 025 Discontinued amoxicillin-pot clavulanate (Augmentin) 875-125 mg per tabletIndicatio ns:Infections Of Bladder In First Trimester (HCC) Take 1 tablet by mouth 2 (two) times a day for 7 days. 14 tablet 10/03/19 25 025 Active Problems Problem Noted Date Diagnosed Date Diverticulosis 05/18/2022 Anxiety 12/15/2018 Gastroesophageal Reflux Disease 04/05/2017 Depression Major Recurrent Moderate Assessment & Plan (10/04/2024 1:23 PM CDT): Managed with medications. Anxiety Generalized Disorder Adjustment Disorder Mixed Reaction Estimated Date of Delivery Comme nts Yes 06/12/2025 Based on last me nstrual period of 09/05/2024 (Exact Date) Resolved Problems Problem Noted Date Diagnosed Date Resolved Date Sinusitis Acute 12/20/2020 03/27/2022 Dysuria 12/20/2020 03/27/2022 Encounter For Supervision Of Normal Unspecified Trimester 11/25/2020 03/27/2022 Encounters Date Type Department Care Team Description 10/26/2024 Nurse Triage Department of Family Medicine, [facility], in [place], [place] [address] [place] [address] Kavitha Gutierrez, R.N. Problem 10/13/2024 8:39 PM CDT - 10/13/2024 11:59 PM CDT Emergency [facility] [address] [place] [phone] Abdominal Pain (Primary Dx) Discharge Disposition: Home or Self Care 10/13/2024 2:00 PM CDT Virtual Visit Department of Obstetrics and Gynecology in [place], [place] [address] [address] Sandhya Turpin M.D. Fox, Catherine A, R.N. Encounter For Supervision Of Other Normal Unspecified Trimester (HCC) (Primary Dx) Discharge Disposition: Home or Self Care 10/02/2024 4:20 PM CDT Office Visit Department of [facility] Medicine, [facility], in [address] [phone] Sandhya Turpin M.D. Infections Of Bladder In First Trimester (HCC) (Primary Dx); Examination Test With Positive Result (HCC); Depression Major Recurrent Moderate (HCC) 09/25/2024 Results Follow-Up Department of Family Medicine, [facility], in [place], [place] [address] [place] [phone] Yadira Bell APRN, C.N.P., D.N.P. Vaginitis Panel, Amplified RNA, Chlamydia / Gonorrhoeae Amplified RNA 09/24/2024 10:00 AM CDT Office Visit Department [facility], [facility], in [address] [phone] Yadira Bell APRN C.N.P., D.N.P. Irritation Vagina (Primary Dx); Nevus Skin 09/23/2024 Nurse Triage Department of [facility] Medicine, [facility], in [place], [place] [address] [place] [phone] Tews, Alissa Tavares, R.N. Vaginal Pain from Last 3 Months Immunizations Immunization Administration Dates Next Due 4vHPV (discontinued) 07/10/2011,10/14/19 11,09/15/2010,2007 DTaP (Infanrix, [employer]edia) 06/08/1996,,06/09/1995,1992,01/28/1992 H1N1 Inj 03/07/2009 HepB, Unspecified 04/13/2003, 4,01/27/2002,2001,11/13/2000,11/13/2000 IPV 11/13/2000, 6,09/06/1992,1991,1991 Influenza TIV (IM) 04/02/2012,04/13/2003 Influenza, Injectable, Quadrivalent 06/13/2020 Influenza, Seasonal, Injectable 04/02/2012 Influenza, Unspecified 01/24/2021(Deferr ed: Other),04/02/2012,04/13/2003 MMR 01/27/2002,11/13/2000 PPD Test 02/08/2020 Polio, Unspecified 11/13/2000, 6,09/06/1992,1991,1991 SARS-COV-2 (COVID-19) - PFIZ ER (Discontinued)(12 years or older) 05/18/2022(Deferred: Patient Refused) Td (Adult), adsorbed 02/22/2004 Tdap 06/23/2021,08/24/2013,07/10/2011 Tuberculin Skin Test, Unspecified 02/08/2020 SHARLA 07/10/2011,04/13/2003 influenza vaccine quad (FLUZONE/FLUARIX) (6 months and older)(PF) 05/18/2022(Deferred: Patient decision) Family History Medical History Relation Name Comments Thyroid disease Mother Relation Name Status Comments Mother Social History Tobacco Use Types Packs/Day Years [...] things needed for daily living? No 10/13/2024 [facility] Utilities Answer Date Recorded In the past 12 months has th [employer] electric, gas, oil, or water company threatened to shut off services in your home? No 10/13/2024 Depression Answer Date Recor ded PHQ-9 Total Score (max 27) 6 10/13 Housing Stability Answer Date Recorded What is your living situation today? [facility] 10/13/2024 Education Answer Date Recorded What is the highest level of school you have completed or the highest degree you have received? GED or equivalent Estimated Date of Delivery Comme nts Yes 06/12/2025 Based on last me nstrual period of 09/05/2024 (Exact Date) Sex and Gender Information Value Date Recorded Sex Assigned at Female 03/01/2021 9:59 PM ASSISTANT PROFESSOR Legal Sex Female 11:14 AM ASSISTANT PROFESSOR Gender Identity Female 11/25/2020 9:55 AM CDT Sexual Orientation Straight 11/25/2020 9: 55 AM CDT Last Filed Vital Signs Vital Sign Reading Time Taken Comments Blood Pressure 120/78 10/02/2024 4:00 PM CDT Pulse 91 10/02/2024 4:00 PM CDT Temperature 36.3 C (97.4 F) 10/02/2024 4:00 PM CDT Respiratory Rate 16 09/24/2024 9:56 AM CDT Oxygen Saturation 100% 10/11/2023 9:15 PM CDT Inhaled Oxygen Concentration - - Weight 62.6 kg (138 lb 0.1 oz) 10/02/2024 4:00 P M CDT Height 158.4 cm (5' 2.36) 10/02/2024 4:00 PM CD T Body Mass Index 24.95 10/02/2024 4:00 PM CDT Plan of Treatment Upcoming Encounters Date Type Department Care Team (Late st Contact Info) Description 11/05/2024 10:00 AM CDT Silent Schedule Department of Obstetrics and Gynecology in [place], [place] [address] [phone] Tab Ngo M.D. [address] [phone] 11/05/2024 11:20 AM CDT Routine Department of Family Medicine, [facility], in [place], [place] [address] [phone] Romaine Trinh M.D. [address] [phone] 11/05/2024 12:00 PM CDT Appointment Department of Laboratory Medicine in [place], [place] [address] [phone] Romaine Trinh M.D. [address] [phone] 11/05/2024 12:10 PM CDT Appointment Department of Laboratory Medicine in [place], [place] [address] [phone] Romaine Trinh M.D. [address] [phone] 01/28/2025 3:00 PM ASSISTANT PROFESSOR Comprehensive Visit Department of Family Medicine, [facility], in [place], [place] [address] [phone] Barbie Florez APRN, C.N.P. [address] [phone] Health Maintenance Due Date Last Done Comments Cervical/Vaginal Cancer Screening 12/03/2021 12/03/2018, 11/19/2014, 08/04/2014, Additional history exists Tobacco Cessation counseling 04/04/2023 04/04/2022 COVID-19 Vaccine ( - 2023- season) 2023 Influenza Vaccine (#1) 2024 , 04/02/2012, 04/02/2012, Additional history exists Depression Monitoring (PHQ-9) 02/13/2025 10/13/2024 Tdap vaccine - (27-36 weeks) (1 - Tdap) 03/13/2025 06/23/2021, 08/24/2013, 07/10/2011, Additional history exists RSV vaccine - (32-36 weeks) or 60+ years (1 - Risk 1-dose series) 04/17/2025 DTaP,Tdap,and Td Vaccines (8 - Td or Tdap) 06/24/2031 06/23/2021, 08/24/2013, 07/10/2011, Additional history exists IPV Vaccines Completed 11/13/2000, 10/24, 06/09/1995, Additional history exists Hepatitis B Vaccines Completed 04/13/2003, 04/13/2003, 01/27/2002, Additional history exists HPV Vaccines Completed 07/10/2011, 09/23, 09/15/2010, Additional history exists Varicella Vaccines Completed 07/10/2011, 04/13/2003 HIV Screening Completed 11/25/2020, 02/27/2013 Hepatitis B Screening Discontinued 11/25/2020, 013 Hepatitis C Screening Completed 11/25/2020 Depression Monitoring (PHQ-9 for quality tracking) Completed 10/13/2024 Pneumococcal vaccine (0-49 years) Aged Out No longer eligible based on patient's age to complete this topic Procedures Procedure Name Priority Date/Time Associated Diagnosis Comments US OB TRANSVAGINAL RAD - Semiurgent (Fast; most ED patients; some inpatients) 10/13/2024 9:56 PM CDT TEST, POCT, U (LAB) Routine 10/02/2024 4:01 PM CDT Examination Test With Positive Result (HCC) TX URINALYSIS AUTO WO MICRO Routine 10/02/2024 4:01 PM CDT URINALYSIS WITH MICROSCOPIC IF INDICATED, U Routine 10/02/2024 4:01 PM CDT Infections Of Bladder In First Trimester (HCC) CHLAMYDIA/GONORRHOE AE AMPLIFIED RNA Routine 09/24/2024 10:55 AM CDT VAGINITIS PANEL, AMPLIFIED RNA Routine 09/24/2024 10:55 AM CDT Irritation Vagina HCV AB SCRN , S Routine 11/25/2020 11:33 AM CDT Encounter For Supervision Of Normal Unspecified Trimester HIV-1/-2 AG AND AB SCRN, PLASMA Routine 11/25/2020 11:33 AM CDT Encounter For Supervision Of Normal Unspecified Trimester HEPATITIS B SURFACE ANTIGEN Routine 11/25/2020 11:33 AM CDT Encounter For Supervision Of Normal Unspecified Trimester THINPREP SCREEN HPV REFLEX STAT 12/03/2018 6:20 PM CDT Pap Smear Examination from Last 3 Months or Most Recently Relevant to Health Maintenance Results * US OB Transvaginal (10/13/2024 9:56 PM CDT) Anatomical Region Laterality Modality Pelvis, Ultrasound OB RST LOS, Ultrasound ARMiguel Angel DAVID S N/A Ultrasound Impressions 10/13/2024 10:05 PM CDT Intrauterine with definite gestational sac and yolk sac but no embryo or cardiac activity yet seen. Consider follow-up ultrasound in 11-14 days. Narrative 10/13/2024 10:05 PM CDT EXAM: US OB TRANSVAGINAL COMPARISON: None TECHNIQUE: Transvaginal Only FINDINGS: Number of Gestations: N/A Gestational age and ELIE by LMP or OB/EHR assignment: 5 w 3 d, ELEI: 06/12/2025 INTRAUTERINE Embryo: Not seen, Penton-Rump Length: N/A Gestational Sac: Normal Yolk Sac: [...] 3 d, ELIE:06/12/2025 INTRAUTERINE Embryo: Not seen, Penton-Rump Length: N/A Gestational Sac: Normal Yolk Sac: [...] IMG OB US PROCEDURES Final R esult * (ABNORMAL) Urinalysis with Microscopic if Indicated: [...] 8.0 10/02/2024 4:26 PM CDT [facility] Specific [place] 1.024 1.001 - 1.035 10/02/2024 4:26 PM CDT [facility] Urobilinogen 0.2 0.2 - 1.0 mg/dL 10/02/2024 4:26 PM CDT [facility] Urine (Urine, Midstream) 10/02/2024 4:01 PM CDT 10/02/2024 4:22 PM CDT us Sandhya Turpin M.D. LAB URINE ORDERABLES Fin al Result [facility] [address] [place] [address], [place] [facility] in [place] [address] [place] [address] * (ABNORMAL) Microscopic Automated (10/02/2024 4:01 PM [...] ORDERABLES Fin al Result Performing Organization Address [facility]/ZIP Co de Phone Number [facility] [address], [place] [address], [facility] in [place] [address] [place] [phone] * (ABNORMAL) Test, POCT, Urine (Lab) (10/02/2024 4:01 PM CDT) Test, POCT, U Positive(A ) 10/02/2024 4:33 PM CDT [facility] Urine (Urine, Midstream) 10/02/2024 4:01 PM CDT 10/02/2024 4:29 PM CDT us Sandhya Turpin M.D. LAB POCT ORDERABLES - DE VICE Final Result Performing Organization Address [facility]/ZIP Co de Phone Number [facility] [address] [place] [address], [facility] in [place] [address] [place] [phone] * Vaginitis Panel, Amplified RNA (09/24/2024 10:55 [...] LAB MICROBIOLOGY - GENERAL ORDERABLES Final Result Performing Organization Address City/State/[facility] Co de Phone Number [facility] [address] [place] [address], [facility] [address] [place] [address] * Chlamydia / Gonorrhoeae Amplified RNA (09/24/2024 10:55 AM CDT) Source VAGINA 09/24/2024 10:51 PM CDT [facility] Chlamydia trachomatis amplified RNA Negative Negative 09/24/2024 10:51 PM CDT [facility] Source VAGINA 09/24/2024 10:51 PM CDT [facility] Neisseria gonorrhoeae amplified RNA Negative Negative 09/24/2024 10:51 PM CDT [facility] 09/24/2024 10:5 5 AM CDT 09/24/2024 2:01 PM CDT Yadira Bell APRN C.N.P. , D.N.P. LAB MICROBIOLOGY - GENERAL ORDERABLES Final Result [facility] [address] [place] [address], [facility] [address] [facility] [address] [place] [address] * Hepatitis C Virus Antibody Screen (11/25/2020 11:33 AM CDT) HCV Ab Scrn , S Negative Negative 11/26/2020 10:11 AM CDT [facility] Comment:Ssbcav-ym-qkugqb rat io is <1.00. Blood (Blood, Venous) 11/25/2020 11:33 AM CDT 11/26/2020 8:28 AM CDT us Delma Rowland M.D., M.B.A. LAB MICROBIOLOGY - BLOO D ORDERABLES Final Result [facility] [address] [place] [address] [facility] Dept. of Laboratory Medicine and Pathology [address] [place] [address] * HIV-1/-2 Ag and Ab Scrn, Plasma (11/25/2020 11:33 AM CDT) HIV Ag/Ab Scrn, P Negative Negative 11/25/2020 7:29 PM CDT [facility] Comment: Negative result does not rule out HIV infection. If exposure to HIV infection occurred <14 days ago, contact the laboratory to request addition of HIV-1 RNA detection / quantification test. HIV-1 p24 Ag Scrn, P Negative Negative 11/25/2020 7:29 PM CDT [facility] Comment: Negative result does not rule out HIV infection. If exposure to HIV infection occurred <14 days ago, contact the laboratory to request addition of HIV-1 RNA detection / quantification test. HIV-1 Ab Scrn, P Negative Negative 11/25/2020 7:29 PM CDT [facility] Comment: Negative result does not rule out HIV infection. If exposure to HIV infection occurred <14 days ago, contact the laboratory to request addition of HIV-1 RNA detection / quantification test. HIV-2 Ab Scrn, P Negative Negative 11/25/2020 7:29 PM CDT [facility] Comment: Negative result does not rule out HIV infection. If exposure to HIV infection occurred <14 days ago, contact the laboratory to request addition of HIV-1 RNA detection / quantification test. Blood (Blood, Venous) 11/25/2020 11:33 AM CDT 11/25/2020 3:43 PM CDT Delma Rowland M.D., M.B.A. LAB MICROBIOLOGY - BLOO D ORDERABLES Final Result [facility] [address] [place] [address], [facility] in [address] [address] * Hepatitis B Surface Antigen (11/25/2020 11:33 AM CDT) HBs Antigen, S Nonreactive Nonreactive 11/26/19 12:53 PM CDT [facility] Comment: Biotin has been identified by the purchasing officer as a potential interfering substance. Higher concentrations of biotin may be found in multivitamins, hair/nail supplements, and workout supplements. If the result does not match clinical observations, repeat testing after patient refrains from the use of supplements for at least 12 hours. Blood (Blood, Venous) 11/25/2020 11:33 AM CDT 11/25/2020 11:53 AM CDT Delma Rowland M.D., M.B.A. LAB MICROBIOLOGY - BLOO D ORDERABLES Final Result [facility] [address] [place] [address], [facility] in [address] [address] * ThinPrep Screen HPV Reflex (12/03/2018 6:20 PM CDT) 12/09/2018 11:32 AM CDT Report electronically signed by ROSA Hanna([facility]) I verify that I have examined all relevant slides/materials for the specimen(s) and rendered or confirmed the diagnosis. 12/09/2018 11:32 AM CDT Gross Description Received specimen in a ThinPrep vial. 12/09/2018 11:32 AM CDT Pap Test Source Cervical/Endocervi kostas 12/09/2018 11:32 AM CDT Clinical History none 12/10/19 19 11:32 AM CDT Interpretation Cervical/Endocervi kostas (ThinPrep): Satisfactory for Evaluation Negative for Intraepithelial Lesion or Malignancy 12/09/2018 11:32 AM CDT Varies (Cervix/Endocerv ix) 12/03/2018 6:20 PM CDT 12/04/2018 8:42 AM CDT us Janette Posey APRN, C.N.P. LAB PAP PATHDX RADHA LEGGETT Final Result [facility] [address] [place] [address], [facility] from Last 3 Months or Most Recently Relevant to Health Maintenance Insurance [facility] [place] [phone] Care Teams Private Sector Executive Relationship Specialty Start Date End Date Janette Posey APRN, C.N.P. [address] [place] [address] PCP - General Family Medicine 12/03/18
--- OUTSIDE RECORDS SUMMARY | 2024-10-26 20:36 | XMS_ITS | Encounter Summary ---
Author Organization [facility] Address [address] [place] [address] Care Team Providers Care Manager Mass Name Role Phone KalpeshJanette Jaskaran SUTTON C.N.PBran Primary Care Provi jairo Reason for Visit * Reason Onset Date Comments Problem 10/26/2024 Encounter Details Date Type Department Care Team (Late st Contact Info) Description 10/26/2024 Nurse Triage Department of Family Medicine, [facility], in [place], [place] [address] [place] [address] Kavitha Gutierrez R.N. Problem Social History Tobacco Use Types Packs/Day Years [...] things needed for daily living? No 10/13/2024 [facility] Utilities Answer Date Recorded In the past 12 months has th e electric, gas, oil, or water company threatened to shut off services in your home? No 10/13/2024 Depression Answer Date Recor ded PHQ-9 Total Score (max 27) 6 10/13 Housing Stability Answer Date Recorded What is your living situation today? I have a [employer] place to live 10/13/2024 Education Answer Date Recorded What is the highest level of school you have completed or the highest degree you have received? GED or equivalent Estimated Date of Delivery Comme nts Yes 06/12/2025 Based on last me nstrual period of 09/05/2024 (Exact Date) Sex and Gender Information Value Date Recorded Sex Assigned at Female 03/01/2021 9:59 PM LOCKSTITCH BACK MAKER Legal Sex Female 11:14 AM LOCKSTITCH BACK MAKER Gender Identity Female 11/25/2020 9:55 AM CDT Sexual Orientation Straight 11/25/2020 9: 55 AM CDT documented as of this encounter Miscellaneous Notes * Telephone Encounter - Kavitha Gutierrez R.N. - 10/26/2024 3:49 PM CDT Chief Complaint / Reason for Call Patient is a 33 y.o. female calling regarding Problem. Assessment Concern: vaginal discharge Patient is 7 w 2 d . She has been experiencing a brownish discharge with intermittent cramping for the Present for: 5 days Calling to request: advice The recommended disposition is Go to LD Now (or PCP Triage). RED dinh transferred the patient to Mildred dope house operator helper [facility], who took over the call and willassist the patient in reaching the OB department for assistance.?? Reason for Disposition [1] Intermittent lower abdominal pain AND [2] present > 24 hours Protocols used: - Vaginal Kyyfrjudu-Jxoqe-RG Care Advice Patient/Caregiver understands and will follow care advice?: Yes, able to teach back - Vaginal Dkftslozq-Tzrmc-HS Nurse Kavitha Mercer Oct 26, 2024 04:00 PM Care Advice GO TO L&D NOW (OR PCP TRIAGE): CARE ADVICE given per - Vaginal Discharge (Adult) guideline. documented in this encounter Plan of Treatment Upcoming Encounters Date Type Department Care Team (Late st Contact Info) Description 11/05/2024 10:00 AM CDT Silent Schedule Department of Obstetrics and Gynecology in [place], [place] [address] [place] [phone] Tab Ngo M.D. [address] [phone] 11/05/2024 11:20 AM CDT Routine Department of Family Medicine, [facility], in [place], [place] [address] [phone] Romaine Trinh M.D. [address] [phone] 11/05/2024 12:00 PM CDT Appointment Department of Laboratory Medicine in [place], [place] [address] [phone] Romaine Trinh M.D. [address] [phone] 11/05/2024 12:10 PM CDT Appointment Department of Laboratory Medicine in [place], [place] [address] [place] [address] Romaine Trinh M.D. [address] [phone] 01/28/2025 3:00 PM LOCKSTITCH BACK MAKER Comprehensive Visit Department of Family Medicine, [facility], in [place], [place] [address] [phone] Barbie Florez APRN, C.N.P. [address] [place] [address] documented as of this encounter Visit Diagnoses Not on filedocumented in this encounter Additional Health Concerns Assessment Noted Time PHQ-9 Depression Total Score: 6 10/14/19 25 1:37 PM CDT documented as of this encounter Care Teams Manager Mass Relationship Specialty Start Date End Date Janette Posey APRN, C.N.P. [address] [place] [address] PCP - General Family Medicine 12/03/18 documented as of this encounter
--- OUTSIDE RECORDS SUMMARY | 2024-10-26 20:37 | XMS_ITS | Encounter Summary ---
Author Organization [facility] Address [address] [place] [address] Care Team Providers Care Military Personnel Specialist Name Role Phone KalpeshJanette Jaskaran SUTTON, C.N.P. Primary Care Provi jairo Encounter Details Date Type Department Care Team (Late st Contact Info) Description 09/25/2024 Results Follow-Up Department of Family Medicine, [facility], in [place], [place] [address] [place] [phone] Yadira Bell APRN, C.N.P., D.N.P. [address] [place] [phone] Vaginitis Panel, Amplified RNA, Chlamydia / Gonorrhoeae Amplified RNA Social History Tobacco Use Types Packs/Day Years [...] things needed for daily living? No 10/13/2024 [facility] Utilities Answer Date Recorded In the past 12 months has th e electric, gas, oil, or water company threatened to shut off services in your home? No 10/13/2024 Depression Answer Date Recor ded PHQ-9 Total Score (max 27) 6 10/13 Housing Stability Answer Date Recorded What is your living situation today? I have a [facility] place to live 10/13/2024 Education Answer Date Recorded What is the highest level of school you have completed or the highest degree you have received? GED or equivalent Comments Unknown Sex and Gender Information Value Date Recorded Sex Assigned at Female 03/01/2021 9:59 PM SHORT ORDER FRY COOK Legal Sex Female 11:14 AM SHORT ORDER FRY COOK Gender Identity Female 11/25/2020 9:55 AM CDT Sexual Orientation Straight 11/25/2020 9: 55 AM CDT documented as of this encounter Plan of Treatment Upcoming Encounters Date Type Department Care Team (Late st Contact Info) Description 11/05/2024 10:00 AM CDT Silent Schedule Department of Obstetrics and Gynecology in [place], [place] [address], [place] [phone] Tab Ngo M.D. [address] [phone] 11/05/2024 11:20 AM CDT Routine Department of Family Medicine, [facility], in [place], [place] [address] [place] [phone] Romaine Trinh M.D. [address] [phone] 11/05/2024 12:00 PM CDT Appointment Department of Laboratory Medicine in [place], [place] [address] [place] [phone] Romaine Trinh M.D. [address] [phone] 11/05/2024 12:10 PM CDT Appointment Department of Laboratory Medicine in [place], [place] [address] [phone] Romaine Trinh M.D. [address] [phone] 01/28/2025 3:00 PM SHORT ORDER FRY COOK Comprehensive Visit Department of Family Medicine, [facility], in [place], [place] [address] [phone] Barbie Florez APRN, C.N.P. [address] [place] [phone] documented as of this encounter Visit Diagnoses Not on filedocumented in this encounter Additional Health Concerns Assessment Noted Time PHQ-9 Depression Total Score: 14 023 2:10 PM SHORT ORDER FRY COOK documented as of this encounter Care Teams Military Personnel Specialist Relationship Specialty Start Date End Date Janette Posey APRN, C.N.P. [address] [place] [phone] PCP - General Family Medicine 12/03/18 documented as of this encounter
--- OUTSIDE RECORDS SUMMARY | 2024-10-26 20:37 | XMS_ITS | Encounter Summary ---
Author Organization [facility] Address [address] [place] [address] Care Team Providers Care Outreach Liaison Name Role Phone KalpeshJanette Jaskaran SUTTON C.NBranPBran Primary Care Provi jairo Reason for Visit * Reason Onset Date Comments Vaginal Pain 09/23/2024 Encounter Details Date Type Department Care Team (Late st Contact Info) Description 09/23/2024 Nurse Triage Department of Family Medicine, [facility], in [place], [place] [address] [place] [phone] Alissa Hernandez, RBranN. Vaginal Pain Social History Tobacco Use Types Packs/Day Years Used Date Smoking Tobacco: Never Smokeless Tobacco: Never Alcohol Use Standard Drinks/Week [...] place to sleep or slept in a retirement (including now)? No 03/14/2021 Depression Answer Date Recor ded PHQ-9 Total Score (max 27) 14 05/18 Education Answer Date Recorded What is the highest level of school you have completed or the highest degree you have received? GED or equivalent Comments Unknown Sex and Gender Information Value Date Recorded Sex Assigned at Female 03/01/2021 9:59 PM HOSTEL MANAGER Legal Sex Female 11:14 AM HOSTEL MANAGER Gender Identity Female 11/25/2020 9:55 AM CDT Sexual Orientation Straight 11/25/2020 9: 55 AM CDT documented as of this encounter Miscellaneous Notes * Telephone Encounter - Alissa Hernandez RBranN. - 09/23/2024 3:21 PM CDT Chief Complaint / Reason for Call Patient is a 33 y.o. female calling regarding Vaginal Pain. Assessment Concern: Vaginal pain. The patient states that she took a bubble bath and has had vaginal discomfort since. She rates the pain at 4/10. She also has two moles on her neck that she would like looked at that are itchy and red. Present for: one and a half weeks Home cares tried: None Calling to request: An appointment The recommended disposition is See a health care provider within 24 hours. Patient was warm transferred to , Patient Appointment Teenage Babysitter at the clinic for further assistance. Reason for Disposition [1] MILD-MODERATE pain AND [2] present > 24 hours (Exception: Chronic pain.) Protocols used: Vaginal Kyqzmukg-Ubjre-JA Care Advice Patient/Caregiver understands and will follow care advice?: Yes, able to teach back Vaginal Peflnjim-Hopej-CN Nurse Alissa Wed Sep 23, 2024 03:39 PM Care Advice SEE PCP WITHIN 24 HOURS: * IF OFFICE WILL BE OPEN: You need to be examined within the next 24 hours. Call your doctor (or APPOINTMENT MANAGER/PA) when the office opens and make an appointment. * IF OFFICE WILL BE CLOSED: You need to be seen within the next 24 hours. A clinic or an urgent care center is often a good source of care if your doctor's office is closed or you can't get an appointment. * IF PATIENT HAS NO PCP: Refer patient to a clinic or urgent care center. Also try to help caller find a PCP for future care. NOTE TO TRIAGER: * Use nurse judgment to select the most appropriate source of care. * Consider both the urgency of the patient's symptoms AND what resources may be needed to evaluate and manage the patient. GENITAL HYGIENE: * Keep your genital area clean. Use mild soaps, but do not use them on your vulva. Wash the vulva area only with water. Gently pat the vulva area dry after washing. * Keep your genital area dry. Wear cotton underwear or underwear with a cotton crotch. * Use unscented 100% cotton menstrual pads. * Use adequate lubrication for sexual intercourse. * DO NOT douche. * DO NOT use feminine hygiene products or perfumed soaps. PAIN MEDICINES: * For pain relief, you can take either acetaminophen, ibuprofen, or naproxen. * They are hjew-etg-cxnncml (OTC) pain drugs. You can buy them at the drugstore. * ACETAMINOPHEN - REGULAR STRENGTH TYLENOL: Take 650 mg (two 325 mg pills) by mouth every 4 to 6 hours as needed. Each Regular Strength Tylenol pill has 325 mg of acetaminophen. The most you should take is 10 pills a day (3,250 mg total). Note: In [place], the maximum is 12 pills a day (3,900 mg total). * ACETAMINOPHEN - EXTRA STRENGTH TYLENOL: Take 1,000 mg (two 500 mg pills) every 6 to 8 hours as needed. Each Extra Strength Tylenol pill has 500 mg of acetaminophen. The most you should take is 6 pills a day (3,000 mg total). Note: In [place], the maximum is 8 pills a day (4,000 mg total). * IBUPROFEN (SUCH MOTRIN, ADVIL): Take 400 mg (two 200 mg pills) by mouth every 6 hours. The most you should take is 6 pills a day (1,200 mg total). * NAPROXEN (SUCH ALEVE): Take 220 mg (one 220 mg pill) by mouth every 8 to 12 hours as needed. You may take 440 mg (two 220 mg pills) for your first dose. The most you should take is 3 pills a day(660 mg total). Note: In [place], the maximum is 2 pills a day (one every 12 hours; 440 mg total). * Use the lowest amount of medicine that makes your pain better. CALL BACK IF: * Fever or severe pain * You become worse documented in this encounter Plan of Treatment Upcoming Encounters Date Type Department Care Team (Late st Contact Info) Description 11/05/2024 10:00 AM CDT Silent Schedule Department of Obstetrics and Gynecology in [place], [place] [address] [phone] Tab Ngo M.D. [address] [phone] 11/05/2024 11:20 AM CDT Routine Department of Family Medicine, [facility], in [place], [place] [address] [phone] Romaine Trinh M.D. [address] [phone] 11/05/2024 12:00 PM CDT Appointment Department of Laboratory Medicine in [place], [place] [address] [phone] Romaine Trinh M.D. [address] [place] [phone] 11/05/2024 12:10 PM CDT Appointment Department of Laboratory Medicine in [place], [place] [address] [place] [phone] Romaine rTinh M.D. [address] [place] [phone] 01/28/2025 3:00 PM HOSTEL MANAGER Comprehensive Visit Department of Family Medicine, [facility], in [place], [place] [address] [place] [phone] Barbie Florez APRN, C.N.P. [address] [phone] documented as of this encounter Visit Diagnoses Not on filedocumented in this encounter Additional Health Concerns Assessment Noted Time PHQ-9 Depression Total Score: 14 023 2:10 PM HOSTEL MANAGER documented as of this encounter Care Teams Outreach Liaison Relationship Specialty Start Date End Date Janette Posey APRN, C.N.P. [address] [place] [phone] PCP - General Family Medicine 12/03/18 documented as of this encounter
[2024-10-26 20:45] LABS: Hematocrit 41.2 % (33.0-51.0); Hemoglobin* 14.0 gm/dL (12.0-16.0); Immature Granulocytes Abs Auto 0.02 K/uL (0.00-0.30); Immature Granulocytes Pct Auto 0.2 %; Lymphocytes Absolute Auto 2.57 K/uL (0.90-2.90); Mean Corpuscular HGB Conc 34 gm/dL (32-36); Mean Corpuscular Hemoglobin 31 pg (26-34); Mean Corpuscular Volume 91 fL (80-100); RDW Coefficient of Variation % 11.7 % (11.5-15.5); Red Blood Count 4.53 m/uL (4.00-5.20); White Blood Count* 8.63 K/uL (4.50-11.00)
[2024-10-26 20:49] LABS: Slide Review Reflex No
--- NOTE | 2024-10-26 20:55 | ED_ITS ---
HPI - General Adult General Chief complaint: Vaginal Bleeding Stated complaint: 7 weeks preg- discharge/pain Time Seen by Provider: 10/26/24 20:19 Source: patient Mode of arrival: ambulatory Limitations: no limitations History of Present Illness HPI narrative: 33-year-old female presenting today with vaginal discharge. Patient states she is approximately 7 weeks by LMP, has not had a appointment. Approximately 1 week ago she started having brown vaginal discharge that is present on a tissue when she wipes. She denies bleeding into a pad. She states that she did have nausea and continues to have that, had breast tenderness which is now better. Patient has left lower quadrant cramping which started several days ago. No nausea or vomiting. No pain with urination. No significant diar merlene or constipation. Related Data Home Medications ?Medication ?Instructions ?Recorded ?Confirmed No Known Home Medications 10/26/24 0807/17 Allergies Allergy/AdvReac Type Severity Reaction Status Date / Time doxycycline Allergy Severe Swelling Verified 10/26/24 18:30 of Lip/Tongue/Throat Review of Systems Status of ROS: Reports: 10 or more systems reviewed and unremarkable except as noted in History and below Exam Narrative: Exam Narrative: Well-nourished well-developed patient in no acute distress. Alert and oriented. Answers questions appropriately. Mood and affect are appropriate. Thoughts are goal oriented and rational. No tangential or magical thinking noted. Patient speaks in full sentences without needing to catch her breath. HEENT: Normocephalic atraumatic. Pupils are equally round reactive to light. Extraocular muscles are intact. Conjunctivae are moist without any icterus noted. Moist mucous membranes. Cardiovascular: Heart is regular rate and rhythm S1 and S2 are present without any murmurs. Lungs: Clear to auscultation bilaterally no wheezes rhonchi or rales are appreciated. Patient takes deep breaths without any discomfort. Abdomen: Soft and nontender nondistended with normal bowel sounds. No guarding or rebound. Extremities: Bilateral lower extremities are without edema. Skin: Well perfused without any obvious rashes. Const: Vital Signs, click to edit/add: Vital Signs - 24 hr 10/26/24 18:26 Temperature 98.0 F Pulse Rate [Pulse Oximeter] 81 Respiratory Rate 16 Blood Pressure [Ri ght Upper Arm] 113/73 Pulse Oximetry 98 Oxygen Delivery Me thod Room Air Course Course ED Course: CBC unremarkable. Ultrasound reveals a 7 week 3-day-old fetus, intrauterine. No evidence of ectopic . No subchorionic hemorrhage. Patient left before hCG results were back. Vital Signs Vital signs: Initial Vital Signs Temperature 98.0 F 10/26/24 18:26 Temperature Source Temporal Artery Scan 10/26/24 18:26 Pulse Rate 81 10/26/24 18:26 Pulse Rhythm Regular 10/26/24 18:26 Respiratory Rate 16 10/26/24 18:26 Blood Pressure 113/73 10/26/24 18:26 Blood Pressure Mean 86 10/26/24 18:26 Blood Pressure Position Sitting 10/26/24 18:26 Pulse Oximetry 98 10/26/24 18:26 Oxygen Delivery Method Room Air 10/26/24 18:26 Vital Signs Temperature 98.0 F 10/26/24 18:26 Pulse Rate 81 10/26/24 18:26 Respiratory Rate 16 10/26/24 18:26 Blood Pressure 113/73 10/26/24 18:26 Pulse Oximetry 98 10/26/24 18:26 Oxygen Delivery Method Room Air 10/26/24 18:26 Temperature 98.0 F 10/26/24 18:26 Pulse Rate 81 10/26/24 18:26 Respiratory Rate 16 10/26/24 18:26 Blood Pressure 113/73 10/26/24 18:26 Pulse Oximetry 98 10/26/24 18:26 Oxygen Delivery Method Room Air 10/26/24 18:26 Medical Decision Making MDM Narrative Medical decision making narrative: 33-year-old female with vaginal discharge. Ultrasound unremarkable. Patient tells nursing at this point that she was at [facility] foreign examination ultrasound a few days ago, they did not have a heart tone at that time so she really wanted to make sure that she had 1 today. Lab Data Lab results reviewed: Yes I reviewed the patient's lab results Labs: Lab Results 10/26/24 Range/Units 20:32 WBC 8.63 (4.50-11.00) K/uL RBC 4.53 (4.00-5.20) m/uL Hgb 14.0 (12.0-16.0) gm/dL Hct 41.2 (33.0-51.0) % MCV 91 (80-100) fL MCH 31 (26-34) pg MCHC 34 (32-36) gm/dL RDW Coeff of Gigi 11.7 (11.5-15.5) % Plt Count 236 (140-440) K/uL Neut % (Auto) 60.6 (42.0-72.0) % Lymph % (Auto) 29.8 (20-44) % Potter % (Auto) 8.3 (0.0-11.0) % Eos % (Auto) 0.9 (0.0-7.0) % Baso % (Auto) 0.2 (0.0-3.0) % Neut # (Auto) 5.22 (1.7-7.0) K/uL Lymph # (Auto) 2.57 (0.90-2.90) K/uL Potter # (Auto) 0.70 (0.00-0.90) K/UL Eos # (Auto) 0.08 (0.00-0.50) K/uL Baso # (Auto) 0.02 (0.00-0.30) K/uL Abs Immat Gran (auto) 0.02 (0.00-0.30) K/uL Imm/Tot Granulo (auto) 0.2 % Imaging Data US - abdomen: Attestation: I have reviewed the pertinent imaging results. Radiologist's impression: TECHNIQUE: Ultrasound OB pelvis transvaginal for better assessment of the pole and ovaries. Real-time colon-scale imaging of the pelvis was performed. COMPARISON: None. FINDINGS: There is a single intrauterine gestation. The embryo demonstrates a regular cardiac rate measuring 159 beats per minute. The embryo`s crown rump length measurement of 1.2 cm corresponds to a gestational age of 7 weeks 3 days with a sonographic due date of 06/11/2025. There is a normal appearing yolk sac. There are no gross abnormalities noted within the embryo at this early state of development. The placenta has not yet developed. There is no sign of perigestational hemorrhage. The ovaries are of normal size. Right ovarian corpus luteal cyst. There are no suspicious fluid collections noted in the cul-de-sac. IMPRESSION: Single viable intrauterine with estimated gestational age of 7 weeks 3 days. No acute abnormalities seen. Discharge Plan Discharge Clinical Impression: Bloody vaginal discharge Patient Disposition: Home, Self-Care Condition: Stable Additional Instructions: Follow-up with OBGYN this week. Prescriptions: No Action No Known Home Medications Follow Up/Referrals: Provider,Not a Local [Primary Care Provider, Family Practice] Stand Alone Forms: [facility] Info Instructions
[2024-10-26 22:07] LABS: HCG Quantitative* 87155.00 mIU/mL
== END 2024-10-26 21:53 | disposition home or self-care (01) ==
PROVIDERS: Emergency Provider Family Medicine
DX: N89.8 Other specified noninflammatory disorders of vagina (principal); Z33.1 Pregnant state, incidental
CPT/HCPCS: 36415; 76817; 84702; 85025; 86900; 86901; 99284